=== PATIENT | female | born 1960 | race Caucasian/White ===

== ENCOUNTER 2018-11-12 05:40 | Inpatient (IN) ==
--- NOTE | 2018-10-26 11:45 | Anesthesiology Consultation ---
Date of Service October 26, 2018 Assessment & Plan (1) Encounter for pre-operative examination: Chart Review Chart Review: Acceptable Risk for Surgery and Patient seen in Pre Admission Testing Teaching & Discussion Instructed NPO after midnight before surgery, except medications with 15 cc of water. Medication instructions provided according to the PAT guidelines. History Surgery Operation Date: 11/12/18 12:25 Proposed Procedures p L2-L3 Transforaminal Lumbar Interbody Fusion - Juan M Padron DO Height/Weight Height: 5 ft 7 in Weight: 92.9 kg Allergies Allergy/AdvReac Type Severity Reaction Status Date / Time Sulfa (Sulfonamide Allergy Unknown Rash Verified 10/21/18 13:01 Antibiotics) azithromycin AdvReac Severe SEVERE ABD Verified 10/21/18 13:02 [From Zithromax Z-Ernesto] PAIN Medications Home Medications Medication Instructions Recorded Confirmed Last Taken Sinex 2 spray INHALATION QPM 10/21/18 Unknown aspirin [Aspir-81] 81 mg PO QAM 10/21/18 10/21/18 Unknown ibuprofen 800 mg PO BID PRN 10/21/18 10/21/18 Unknown levocetirizine 5 mg PO QAM 10/21/18 10/21/18 Unknown levothyroxine 125 mcg PO QAM 10/21/18 10/21/18 Unknown losartan 50 mg PO QAM 10/21/18 10/21/18 Unknown oxybutynin chloride 5 mg PO BID 10/21/18 10/21/18 Unknown pantoprazole 40 mg PO QAM 10/21/18 10/21/18 Unknown ropinirole [Requip] 1 mg PO HS 10/21/18 10/21/18 Unknown tramadol 50 mg PO BID PRN 10/21/18 10/21/18 Unknown Past Medical History Medical History Chronic back pain GERD (gastroesophageal reflux disease) History of palpitations Holter 04/2018 WNL, few ectopic beats History of reflex sympathetic dystrophy POLYNEUROPATHY-RIGHT LEG/ARM/LEFT UPPER THIGH QUADRANT-S/P 2007 INJURY Hx of simple renal cyst RIGHT Hypertension Nausea and vomiting after administration of anesthetic agent Osteoarthritis Sleep apnea DOES NOT USE DEVICE Past Family History Family History Father Family history of diabetes mellitus Brother Family history of diabetes mellitus Sister Family hx of colon cancer Past Surgical History Surgical History History of colonoscopy History of esophagogastroduodenoscopy (EGD) History of hysterectomy LAPAROSCOPY Hx of cardiac cath Diagnostic 2014, no stents Hx of foot surgery X 7-RIGHT S/P INDUSTRIAL INJURY Hx of sinus surgery X 2 Past Anesthesia History No Hx of Anesthesia Complications (other than PONV) and No Family Hx of Anesthesia Complications History of PONV Yes Social History Smoking Status: Never smoker Do You Dip or Chew Tobacco: No Hx Alcohol Use: Yes Alcohol type: beer alcohol intake frequency: a few times a month Hx Substance Use: No Exercise / Class Metabolic Activity II 4-5 Yardwork/Stairs/Walk up hill Review of Systems Pt denies any recent chest pain, shortness of breath, palpitations, cough, fever or URI. +chronic sinus drainage Physical Exam Vital Signs BP: 115/82 P: 80 SPO2: 92% RA (pt says it is always low, this is baseline. No acute SOB) T: 97.8 F R: 18 ENMT Mouth: + dentures (upper partial); no dental restorations, no chipped teeth and no loose teeth Thyromental Distance: > or= 3.5 Finger Breadths (3.5) Mallampati Class: II Neck normal visual inspection; neck extension not limited Respiratory normal respiratory effort and + prolonged expiratory phase Auscultation: lungs clear to auscultation bilaterally Cardiovascular Rate/Rhythm: regular rate and regular rhythm Heart Sounds: no murmur Vessels: no carotid bruit Testing Electrocardiogram Date: 04/26/18 Findings: + NSR @ (80) Chest X-Ray Date: 10/26/18 Findings: + NAD Laboratory Results 10/26/18 11:55 10/26/18 11:55 Blood Type B Negative 10/26/18 11:55 Antibody Screen NEGATIVE 10/26/18 11:55 PT 10.1 Seconds (9.0-12.0) 10/26/18 11:55 INR 1.0 (0.9-1.1) 10/26/18 11:55 APTT 25.9 Seconds (21.0-31.0) 10/26/18 11:55 Urine Color Yellow 10/26/18 11:55 Urine Appearance Clear (Clear) 10/26/18 11:55 Urine pH 5.5 (4.5-7.5) 10/26/18 11:55 Ur Specific [place] 1.022 (1.000-1.030) 10/26/18 11:55 Urine Protein Negative (Negative) 10/26/18 11:55 Urine Glucose (UA) Negative (Negative) 10/26/18 11:55 Urine Ketones Negative (Negative) 10/26/18 11:55 Urine Nitrite Negative (Negative) 10/26/18 11:55 Ur Leukocyte Esterase Negative (Negative) 10/26/18 11:55
--- NOTE | 2018-10-26 11:52 | PAT Medication Instructions ---
Medication Instructions Date of Service October 26, 2018 Home Medications Sinex 2 spray INHALATION QPM aspirin [Aspir-81] 81 mg PO QAM ibuprofen 800 mg PO BID PRN levocetirizine 5 mg PO QAM levothyroxine 125 mcg PO QAM losartan 50 mg PO QAM oxybutynin chloride 5 mg PO BID pantoprazole 40 mg PO QAM ropinirole [Requip] 1 mg PO HS tramadol 50 mg PO BID PRN ASK your surgeon for instructions ibuprofen 800 mg PO BID PRN STOP taking 24 hours before surgery ropinirole [Requip] 1 mg PO HS DO NOT take the morning of surgery levocetirizine 5 mg PO QAM losartan 50 mg PO QAM oxybutynin chloride 5 mg PO BID Take morning of surgery With a small sip of water, OTHERWISE NOTHING TO EAT OR DRINK AFTER MIDNIGHT: aspirin [Aspir-81] 81 mg PO QAM levothyroxine 125 mcg PO QAM pantoprazole 40 mg PO QAM tramadol 50 mg PO BID PRN (if needed, may be taken up to four hours before surgery) Take evening before surgery oxybutynin chloride 5 mg PO BID Sinex 2 spray INHALATION QPM tramadol 50 mg PO BID PRN (if needed) Other Notes If you have any questions please call us at [phone] or [phone] or [phone] or [phone]
[2018-10-26 12:41] LABS: Basophils # (auto) 0.02 K/uL (0-0.2); Basophils % (auto) 0.3 %; Eosinophils % (auto) 1.4 %; Hematocrit (blood only) 40.6 % (37-47); Immature Granulocytes # (auto) 0.01 K/uL (0.00-0.02); Immature Granulocytes % (auto) 0.1 %; Lymphocytes # (auto) 2.05 K/uL (1.2-3.4); Lymphocytes % (auto) 28.1 %; Mean Corpuscular Volume 88.5 fL (80-100); Mean Platelet Volume 10.1 fL (7.4-10.4); Monocytes # (auto) 0.36 K/uL (0.11-0.59); Monocytes % (auto) 4.9 %; Neutrophils # (auto) 4.76 K/uL (1.4-6.5); Neutrophils % (auto) 65.2 %; Platelet Count 244 K/uL (130-400); RDW Coefficient of Variation 13.3 % (11.5-14.5); RDW Standard Deviation 43.1 fL (36.4-46.3); Red Blood Count 4.59 M/uL (4.2-5.4)
[2018-10-26 12:42] LABS: Appearance Urine Clear (Clear); Bilirubin Urine Negative (Negative); Color Urine Yellow; Glucose Urine UA Negative (Negative); Ketones Urine Negative (Negative); Leukocyte Esterase Urine Negative (Negative); Nitrite Urine Negative (Negative); Protein Urine Negative (Negative); Specific Gravity Urine 1.022 (1.000-1.030); Urobilinogen Urine Negative (Negative); pH Urine 5.5 (4.5-7.5)
--- NOTE | 2018-10-26 12:50 | XRay Report ---
XR chest Pre-admission PA/Lat CLINICAL HISTORY: Preoperative chest COMPARISON STUDY: No previous studies for comparison. FINDINGS: The cardiac and mediastinal contours are normal. There is no evidence of focal pulmonary co nsolidation. There is no evidence of failure. No pleural effusions are visualized.[ IMPRESSION: No active disease in the chest. Electronically signed by: Geremias Calloway M.D. 10/26/2018 12:49 PM
[2018-10-26 13:11] LABS: Partial Thromboplastin Time 25.9 Seconds (21.0-31.0); Prothrombin Time 10.1 Seconds (9.0-12.0)
[2018-10-26 13:28] LABS: BUN Creatinine Ratio 26.6 (10-20); Calcium 8.9 mg/dl (8.5-10.1); Creatinine Clr Calc Pharmacy 90.9 ml/min; Est GFR (African American) 97.3; Est GFR (Non-African American) 83.9; Potassium 3.8 mmol/L (3.5-5.1)
[2018-11-12] MEDS ORDERED: ACETAMINOPHEN 500 MG TAB PO SCH (06:00)
[2018-11-12] MEDS ORDERED: LR 15ML/HR IV SCH (06:00)
[2018-11-12] MEDS ORDERED: CEFAZOLIN 2000MG 2,000 MG/15 ML SYR IV SCH (06:00)
[2018-11-12] MEDS ORDERED: GABAPENTIN 300 MG x 2 PO SCH (06:00)
[2018-11-12] MEDS ORDERED: fentaNYL citrate 100 MCG/2 ML VIAL ONE ×3 (06:45→08:40)
[2018-11-12] MEDS ORDERED: MIDAZOLAM HCL 1 MG/ML 2ML VIAL ONE (06:45)
[2018-11-12] MEDS ORDERED: HYDROmorphone INJ 2 MG/ML SYR/VIAL ONE ×3 (06:45→09:15)
[2018-11-12] MEDS ORDERED: PROPOFOL IV EMULSION 10 MG/ML 20 ML VIAL IV ONE (06:48)
[2018-11-12] MEDS ORDERED: LIDOCAINE HCL 2% 2 ML VIAL/AMP(20MG/ML) INFIL ONE (06:48)
[2018-11-12] MEDS ORDERED: DEXAMETHASONE SOD INJ 4 MG/ML VIAL ONE (06:48)
[2018-11-12] MEDS ORDERED: ROCURONIUM BROMIDE 10 MG/ML 5 ML VIAL ONE ×4 (06:48→12:32)
[2018-11-12] MEDS ORDERED: LARYING-O-JET KIT (LTA) ONE (06:48)
[2018-11-12] MEDS ORDERED: ONDANSETRON INJ 2 MG/ML 2 ML VIAL ONE ×2 (06:48→09:18)
[2018-11-12] MEDS ORDERED: GLYCOPYRROLATE 0.2 MG/ML VIAL ONE (06:48)
[2018-11-12] MEDS ORDERED: NEOSTIGMINE METHYLSULFATE 1 MG/ML 10ML VIAL ONE (06:48)
[2018-11-12] MEDS ORDERED: BUPIVACAINE/EPINEPHRINE 0.5% MPF 1:200,000 30 ML VIAL ONE (06:56)
[2018-11-12] MEDS ORDERED: BACITRACIN INJ 50,000 UNIT VIAL ONE (06:56)
[2018-11-12] MEDS ORDERED: ePHEDrine sulfate 50 MG/ML AMP IV PRN (07:22)
[2018-11-12] MEDS ORDERED: HYDROmorphone INJ 2 MG/ML SYR/VIAL IV PRN (07:22)
[2018-11-12] MEDS ORDERED: PROMETHAZINE HCL 12.5 MG in SODIUM CHLORIDE 0.9% 50 ML IV PRN ×2 (07:22→10:35)
[2018-11-12] MEDS ORDERED: ONDANSETRON INJ 2 MG/ML 2 ML VIAL IV PRN (07:22)
[2018-11-12] MEDS ORDERED: MEPERIDINE HCL 25 MG/ML CARP IV PRN (07:22)
[2018-11-12] MEDS ORDERED: LABETALOL HCL IV 5 MG/ML 20ML IV PRN (07:22)
[2018-11-12] MEDS ORDERED: PHENYLEPHRINE 100MCG/ML 5ML SYR IV PRN (07:22)
[2018-11-12] MEDS ORDERED: SCOPOLAMINE 1.5 MG TDSY TD ONE (07:22)
[2018-11-12] MEDS ORDERED: ATROPINE SULFATE 0.1 MG/ML 5ML SYR IV PRN (07:22)
--- NOTE | 2018-11-12 07:29 | History & Physical Bridge Note ---
Date of Service November 12, 2018 History & Physical Bridge Note I have examined the patient, reviewed the History & Physical and in the interval since the performance of the History & Physical I have noted the following changes of clinical significance: no changes noted
--- NOTE | 2018-11-12 07:30 | History & Physical Report ---
Date of Service November 12, 2018 Assessment & Plan (1) Neurogenic claudication due to lumbar spinal stenosis: Lumbar decompression and fusion L2-3 Present on Admission?: Yes History of Present Illness Chief Complaint: Back and leg pain Primary Care Provider: NO PCP This is a 58-year-old female presents with chronic persistent back and leg pain. After failing extensive course of nonoperative care is here for surgical intervention. Allergies Allergy/AdvReac Type Severity Reaction Status Date / Time Sulfa (Sulfonamide Allergy Intermediate Rash Verified 11/12/18 05:56 Antibiotics) azithromycin AdvReac Severe SEVERE ABD Verified 10/21/18 13:02 [From Zithromax Z-Ernesto] PAIN Home Medications Home Medications Medication Instructions Recorded Confirmed Type Sinex 2 spray INHALATION QPM 10/21/18 History aspirin [Aspir-81] 81 mg PO QAM 10/21/18 11/12/18 History ibuprofen 800 mg PO BID PRN 10/21/18 11/12/18 History levocetirizine 5 mg PO QAM 10/21/18 11/12/18 History levothyroxine 125 mcg PO QAM 10/21/18 11/12/18 History losartan 50 mg PO QAM 10/21/18 11/12/18 History oxybutynin chloride 5 mg PO BID 10/21/18 11/12/18 History pantoprazole 40 mg PO QAM 10/21/18 11/12/18 History ropinirole [Requip] 1 mg PO HS 10/21/18 11/12/18 History tramadol 50 mg PO BID PRN 10/21/18 10/21/18 History Past Med/Surg History Medical History Hypothyroidism (Acute) Chronic back pain GERD (gastroesophageal reflux disease) History of palpitations Holter 04/2018 WNL, few ectopic beats History of reflex sympathetic dystrophy POLYNEUROPATHY-RIGHT LEG/ARM/LEFT UPPER THIGH QUADRANT-S/P 2008 INJURY Hx of simple renal cyst RIGHT Hypertension Osteoarthritis Sleep apnea DOES NOT USE DEVICE Surgical History History of colonoscopy History of esophagogastroduodenoscopy (EGD) History of hysterectomy LAPAROSCOPY Hx of cardiac cath Diagnostic 2014, no stents Hx of foot surgery X 7-RIGHT S/P INDUSTRIAL INJURY Hx of sinus surgery X 2 Nausea and vomiting after administration of anesthetic agent Family History Father Family history of diabetes mellitus Brother Family history of diabetes mellitus Sister Family hx of colon cancer Social History Current Living Situation: Alone Other Information That Helps Us Care for You: No Feels Safe at Home: Yes Safety Concerns: Feels Safe At This Time Smoking Status: Never smoker Do You Dip or Chew Tobacco: No Hx Alcohol Use: Yes Alcohol type: beer Alcohol Intake Frequency: a few times a month Hx Substance Use: No Beliefs That Will Affect Care: None Preferred Language: Togolese Communication Ability: Effective Dock Manager Required: No Physical Exam 2 Vital Signs (Past 24 Hours): Last Vital Signs Temp 36.5 C 11/12/18 06:06 Pulse 73 11/12/18 06:06 Resp 20 11/12/18 06:06 BP 161/87 H 11/12/18 06:06 Pulse Ox 95 11/12/18 06:06 Results & Data Medications Administered Acetaminophen (Tylenol) 1,000 mg PO PREOP STACY Stop: 11/12/19 23:00 Last Admin: 11/12/18 06:33 Dose: 1,000 mg Gabapentin (Neurontin) 600 mg PO PREOP STACY Stop: 11/12/18 16:00 Last Admin: 11/12/18 06:34 Dose: 600 mg Lactated Ringer's (Lr) 1,000 mls @ 15 mls/hr IV .Q24H STACY Stop: 11/12/18 23:59 Last Admin: 11/12/18 06:24 Dose: 15 mls/hr
[2018-11-12] MEDS ORDERED: SCOPOLAMINE 1.5 MG TDSY ONE (07:39)
[2018-11-12] MEDS ORDERED: CHECK SCOPOLAMINE PATCH PLACEMENT SCH (08:00)
[2018-11-12] MEDS ORDERED: FLOSEAL HEMOSTATIC MATRIX 10ML TOP ONE (08:12)
--- NOTE | 2018-11-12 09:10 | Operative Report ---
Post Operative Report Date of Surgery November 12, 2018 Pre & Post Diagnosis Operation Date: 11/12/18 07:45 Pre-Op Diagnosis: Lumbar spinal stenosis with radiculopathy Post-Op Diagnosis: Same Procedure Operation Date: 11/12/18 07:45 Actual Procedures #1 lumbar decompression medial vasectomy foraminotomy L2-3. #2 posterior spinal fusion L2-3. #3 placement posterior instrumentation L2-3. #4 interbody fusion L2-3. #5 placement of titanium 9 x 22 mm cage at L2-3. #6 placement of local autograft in the posterior gutters. #7 placement infuse collagen sponge, master graft and posterior gutters and ostial amp and interbody space. Surgeon Juan M Padron, Pole Peeling Machine Operator Helper Clarence Romo Estimated Blood Loss 150 Findings Consistent with Post-Op Diagnosis Specimens None Description of Procedure Patient was met with preoperatively case discussed all questions addressed. After informed consent obtained patient was taken to the operative suite underwent intubation and placed in a prone position on the Renato table on top of the Sotero frame. All bony prominences well-padded eyes inspected to ensure no external pressure placed upon the. This point the lumbar spine was prepped and draped in normal sterile fashion. Sharp dissection with the assistance of Bovie cautery was performed down to and exposing the lamina and transverse processes of the. From a caudal to cephalad fashion complete laminectomy of L2 was performed including medial facetectomy foraminotomy and left addressing severe foraminal stenosis. Pedicle screws were then placed in L2 and L3 bilaterally with assistance of fluoroscopy the process rosey placed. The transforaminal approach and left complete discectomy was performed in. Carotid to subcortical bleeding bone and a 9 x 22 mm titanium cage filled ostium bone graft tapped in position. Rods were then compressed locked in final position bilaterally. The transverse processes of L2 and L3 burred to subcortical bleeding bone. Infuse collagen sponge mass graft local autograft placed in the posterior gutters. 15 round HERNANDEZ drain inserted. Incision was then closed with 1 Vicryl the fascia 2-0 Vicryl subcutaneous and 4 Monocryl for Fransen closure Steri-Strip sterile dressings placed. Patient will continue to PACU in stable condition. Please note Clarence Romo present throughout the entire procedure involved in patient positioning complex portions of the surgery and fashion closure. I attest to the content of the Intraoperative Record and any orders documented therein. Any exceptions are noted below.
[2018-11-12] MEDS ORDERED: PHENYLEPHRINE 100MCG/ML 5ML SYR ONE (09:18)
[2018-11-12] MEDS ORDERED: ePHEDrine sulfate 50 MG/ML SYR ONE (09:18)
[2018-11-12] MEDS ORDERED: METOCLOPRAMIDE HCL INJ 5 MG/ML 2 ML VIAL ONE (09:18)
[2018-11-12] MEDS ORDERED: raNITIdine HCl 25 MG/ML VIAL ONE (09:18)
[2018-11-12] MEDS ORDERED: KETOROLAC 30 MG/ML VIAL ONE (09:18)
--- NOTE | 2018-11-12 09:20 | Fluoroscopy Report ---
FL lumbar spine 2-3V CLINICAL HISTORY: L2-L3 LUMBAR INTERBODY FUSION COMPARISON STUDY: None FLUOROSCOPY TIME: 18 seconds. NUMBER OF FLUOROSCOPIC IMAGES: 2 FINDINGS: 2 intraoperative fluoroscopic spot images reveal postsurgical changes of an L2-3 interbody fusion and posterior pedicle screw fixation. IMPRESSION: Intraoperative radiographs demonstrating an L2-3 interbody fusion and posterior pedicle screw fixation Electronically signed by: Geremias Calloway M.D. 11/12/2018 9:19 AM
[2018-11-12] MEDS ORDERED: ESMOLOL HCL INJ 10 MG/ML 10ML VIAL IV ONE (09:31)
[2018-11-12] MEDS: fentaNYL citrate 100 MCG/2 ML VIAL IV PRN ×2 (09:45→09:52)
--- NOTE | 2018-11-12 10:03 | Anesthesiology Progress Note ---
Date of Service November 12, 2018 Anesthesia Post Procedure Vital Signs Vital Signs: Temp Pulse Pulse Resp BP Pulse Ox 11/12/18 09:28 36.4 C L 94 H 16 161/89 H 96 11/12/18 06:06 36.5 C 73 20 161/87 H 95 Pain Intensity Lower Back: Pain Intensity: 0 Bilateral Hip: Pain Intensity: 4 Notes Mental Status: alert / awake / arousable Patient Amnestic to Procedure: Yes Nausea / Vomiting: adequately controlled Pain: adequately controlled Airway Patency, RR, SpO2: stable & adequate BP & HR: stable & adequate Hydration State: stable & adequate Anesthetic Complications: no major complications apparent and Pt Satisfied with anesthetic care
[2018-11-12] MEDS ORDERED: TRAMADOL HCL 50 MG TABLET PO PRN (10:35)
[2018-11-12] MEDS ORDERED: METOCLOPRAMIDE HCL INJ 5 MG/ML 2 ML VIAL IV PRN (10:35)
[2018-11-12] MEDS ORDERED: LORazepam 0.5 MG TAB PO PRN (10:35)
[2018-11-12] MEDS ORDERED: BISACODYL 10 MG SUPP PR PRN (10:35)
[2018-11-12] MEDS ORDERED: FAMOTIDINE 20 MG TAB PO PRN (10:35)
[2018-11-12] MEDS ORDERED: DO NOT ADMINISTER PNEUMOCOCCAL VACCINE PRN (10:35)
[2018-11-12] MEDS ORDERED: SOD PHOSPHATE/SOD BIPHOSPHATE ENEMA 132 ML BTL PR PRN (10:35)
[2018-11-12] MEDS ORDERED: LORazepam 0.5 MG/1 ML VIAL IV PRN (10:35)
[2018-11-12] MEDS ORDERED: ONDANSETRON 4 MG TAB PO PRN (10:35)
[2018-11-12] MEDS ORDERED: ALUMINUM/MAGNESIUM SUSP 30 ML UDC PO PRN (10:35)
[2018-11-12] MEDS ORDERED: ACETAMINOPHEN 1,000 MG/100 ML VIAL IV PRN (10:35)
[2018-11-12] MEDS ORDERED: MAGNESIUM HYDROXIDE SUSP 30 ML UDC PO PRN (10:35)
[2018-11-12] MEDS ORDERED: HYDROmorphone INJ 0.5 MG/0.5 ML SYR IV PRN (10:35)
[2018-11-12] MEDS ORDERED: DO NOT ADMINISTER FLU VACCINE PRN (10:35)
[2018-11-12] MEDS: SODIUM CHLORIDE 0.9% 1000ML 1,000 ML IV SCH ×2 (11:28→18:43)
[2018-11-12] MEDS: KETOROLAC TROMETHAMINE 15 MG/ML VIAL IV SCH ×2 (14:22→19:41)
[2018-11-12] MEDS: CEFAZOLIN 2000MG 2,000 MG/15 ML SYR IV SCH ×2 (16:05→23:05)
[2018-11-12] MEDS: ROPINIROLE HCL 1 MG TABLET PO SCH (20:42)
[2018-11-12] MEDS: OXYBUTYNIN CHLORIDE 5 MG TAB PO SCH (20:42)
[2018-11-12] MEDS: DOCUSATE SODIUM/SENNA 50/8.6MG TAB PO SCH (20:42)
[2018-11-13] MEDS: KETOROLAC TROMETHAMINE 15 MG/ML VIAL IV SCH ×2 (01:25→07:33)
[2018-11-13] MEDS: SODIUM CHLORIDE 0.9% 1000ML 1,000 ML IV SCH (01:30)
[2018-11-13 05:32] LABS: Basophils # (auto) 0.01 K/uL (0-0.2); Basophils % (auto) 0.1 %; Eosinophils # (auto) 0.01 K/uL (0-0.5); Eosinophils % (auto) 0.1 %; Hematocrit (blood only) 34.3 % (37-47); Hemoglobin 11.1 g/dL (12.0-16.0); Immature Granulocytes # (auto) 0.02 K/uL (0.00-0.02); Immature Granulocytes % (auto) 0.2 %; Lymphocytes # (auto) 1.86 K/uL (1.2-3.4); Lymphocytes % (auto) 15.9 %; Mean Corpuscular Hgb Conc 32.4 g/dL (32-36); Mean Corpuscular Volume 87.9 fL (80-100); Mean Platelet Volume 9.8 fL (7.4-10.4); Monocytes # (auto) 0.84 K/uL (0.11-0.59); Monocytes % (auto) 7.2 %; Neutrophils # (auto) 8.98 K/uL (1.4-6.5); Neutrophils % (auto) 76.5 %; Platelet Count 230 K/uL (130-400); RDW Coefficient of Variation 13.7 % (11.5-14.5); RDW Standard Deviation 43.6 fL (36.4-46.3); White Blood Count 11.72 K/uL (4.8-10.8)
[2018-11-13] MEDS: POLYETHYLENE (MIRALAX) 17 GM PACK PO SCH ×4 (05:33→23:31)
[2018-11-13] MEDS: LEVOTHYROXINE SODIUM 125 MCG TABLET PO SCH (05:33)
[2018-11-13 05:51] LABS: BUN Creatinine Ratio 26.6 (10-20); Calcium 8.3 mg/dl (8.5-10.1); Creatinine Clr Calc Pharmacy 101.5 ml/min; Est GFR (African American) 109.7; Est GFR (Non-African American) 94.6; Potassium 3.6 mmol/L (3.5-5.1)
[2018-11-13] MEDS: ONDANSETRON INJ 2 MG/ML 2 ML VIAL IV PRN (07:27)
[2018-11-13] MEDS: OXYBUTYNIN CHLORIDE 5 MG TAB PO SCH ×2 (08:22→20:46)
[2018-11-13] MEDS: PANTOprazole 40 MG TAB PO SCH (08:22)
[2018-11-13] MEDS: ASPIRIN 81 MG ECTAB PO SCH (08:23)
[2018-11-13] MEDS: LOSARTAN POTASSIUM 50 MG TAB PO SCH (08:23)
--- NOTE | 2018-11-13 10:19 | Orthopedic Progress Note ---
Date of Service November 13, 2018 Assessment & Plan (1) Neurogenic claudication due to lumbar spinal stenosis: Patient will continue physical therapy today advance her bowel regimen. Anticipate possible discharge home tomorrow. Present on Admission?: Yes Subjective Pain is controlled leg pain improved Physical Exam 2 Vital Signs (Past 24 Hours): Last Vital Signs Temp 37.0 C 11/13/18 07:08 Pulse 78 11/13/18 07:08 Resp 18 11/13/18 07:08 BP 154/82 H 11/13/18 07:08 Pulse Ox 94 11/13/18 07:08 Physical Exam: Neurologically she is intact appears comfortable.
[2018-11-13] MEDS: OXYCODONE HCL IR 5 MG TAB (IMMEDIATE RELEASE) PO PRN ×2 (10:47→14:48)
[2018-11-13] MEDS: TRAMADOL HCL 50 MG TABLET PO PRN (16:23)
[2018-11-13] MEDS: DOCUSATE SODIUM/SENNA 50/8.6MG TAB PO SCH (20:46)
[2018-11-13] MEDS: ROPINIROLE HCL 1 MG TABLET PO SCH (20:46)
[2018-11-14] MEDS: ONDANSETRON INJ 2 MG/ML 2 ML VIAL IV PRN (01:49)
[2018-11-14] MEDS: OXYCODONE HCL IR 5 MG TAB (IMMEDIATE RELEASE) PO PRN (01:49)
[2018-11-14] MEDS: LEVOTHYROXINE SODIUM 125 MCG TABLET PO SCH (06:21)
[2018-11-14] MEDS: POLYETHYLENE (MIRALAX) 17 GM PACK PO SCH ×2 (06:21→12:29)
[2018-11-14] MEDS: TRAMADOL HCL 50 MG TABLET PO PRN ×2 (06:25→12:33)
[2018-11-14] MEDS: PANTOprazole 40 MG TAB PO SCH (07:57)
[2018-11-14] MEDS: OXYBUTYNIN CHLORIDE 5 MG TAB PO SCH (07:57)
[2018-11-14] MEDS: ASPIRIN 81 MG ECTAB PO SCH (07:58)
[2018-11-14] MEDS: LOSARTAN POTASSIUM 50 MG TAB PO SCH (08:00)
--- NOTE | 2018-11-14 10:44 | Discharge Summary ---
Date of Service November 14, 2018 Admission HPI Per Admitting Provider This is a 58-year-old female presents with chronic persistent back and leg pain. After failing extensive course of nonoperative care is here for surgical intervention. Principal Diagnosis Lumbar spinal stenosis with radiculopathy Discharge Data Allergies Allergy/AdvReac Type Severity Reaction Status Date / Time Sulfa (Sulfonamide Allergy Intermediate Rash Verified 11/12/18 05:56 Antibiotics) azithromycin AdvReac Severe SEVERE ABD Verified 10/21/18 13:02 [From Zithromax Z-Ernesto] PAIN Consultations 11/12/18 10:35 Consult Case Management - Discharge Planning Routine Procedures Performed Operation Date: 11/12/18 07:45 Actual Procedures p L2-L3 Decompression, Fusion, Interbody Fusion, Use of Infuse and Osteoamp(Not Applicable) - Juan M Padron DO Ordered Studies 11/12/18 07:45 FL fluoroscopy >1hr Routine FL lumbar spine 2-3V Routine Hospital Course (1) Neurogenic claudication due to lumbar spinal stenosis: Patient underwent lumbar decompression fusion tolerated this well was taken to the orthopedic floor postoperative. Postop day and when she was up and ambulating nicely. Leg pain resolved. Back pain controlled. She progressed through postop day #2. HERNANDEZ drain decreasing probably. Subsequent to discharge home. Discharge orders and instructions found in the chart for further review. Total Time Total Time Spent Total Time Spent (In Minutes): Not applicable Discharge Plan Discharge Items Patient Disposition: Home - Self-Care Reason For Visit: Spinal Stenosis Discharge Diagnosis: Lumbar spinal stenosis with radiculopathy Discharge Goals: Improve function Activity: Per 'Additional Instructions' section Non-emergency contact: Primary Care Provider Call non-emergency contact if: you have any medication questions Follow-up/Referrals: PCP,NO [Primary Care Provider] - Diet: Regular Addtl Provider Instructions: ACTIVITY RECOMMENDATIONS: SELF CARE INSTRUCTIONS AFTER THORACIC/LUMBAR FUSIONS 1. You may walk to your tolerance. It is good exercise for your legs and back. Expect some back and intermittent leg aches and pains. 2. You may perform "counter-top" level activities (make a sandwich, sanjiv with a project, etc.). 3. No bending or lifting of more than 10 pounds or back twisting of any nature (roll like a log when turning in bed). 4. You may ride in a car for 20-30 minutes at a time. No driving until after your first visit with your doctor. 5. Frequent changes of position and restricting sitting to 30 minutes at a time will help limit the amount of back spasms and stiffness you may experience. 6. You may discontinue the use of ambulatory aids (cane, crutches, etc.) once your strength and confidence allow. 7. You may in school suspension coordinator the shower and let water strike your incision when you arrive home at least once daily. Do not take a tub bath, sit in a hot tub or go into a swimming pool until after your first recheck in the office. SPECIAL CARE INSTRUCTIONS: VERY IMPORTANT TO READ AND REVIEW A. Your surgical incision has been closed with a cosmetic suture under the skin that will dissolve in about 6 weeks. In 14 days, you can use a pair of clean scissors and cut the suture that is left outside of the skin at the ends of your incision. 1. The small skin tapes can be removed 7 days after surgery if they have not fallen off by that point. 2. You may keep the wound open to air as much as possible to promote healing after post-op day number 5 unless told otherwise by your doctor. 3. If you think the wound looks like it is becoming infected (redness or worsening drainage) and/or you are experiencing fever, chill or worsening back pain and muscle spasms, contact the office so that we may evaluate you as soon as possible. B. Complications are uncommon, but please contact us if you have any signs or symptoms of: 1. wound infection (fever higher than 102.5 degrees F, redness, separation of wound, drainage, or increasing pain from the incision) 2. blood clots in legs (pain, swelling, redness and warmth in legs) 3. urinary tract infection (fever higher than 102.5 degrees F, burning upon urination or increased frequency of urination) 4. nerve problems (inability to walk on your toes or heels, numbness, loss of bowel or bladder control) 5. any other symptoms that concern you C. Please call the office at if you have any concerns or questions about your operation or recovery. D. No smoking! Smoking drastically decreases the chance of a solid fusion. E. Do not take any anti-inflammatory medications (Indocin, Advil, Motrin, Aspirin, Naprosyn, etc.) as these may inhibit the chance of a solid fusion. Tylenol is okay to take for pain. MANAGING PAIN AFTER SPINAL SURGERY 1. Narcotic medication is intended for short-term use and will be provided for surgical pain. Surgical pain usually lasts for a period of 4-6 weeks. Narcotic medication includes Percocet, Vicodin, Darvocet, Tylenol #3 or Lortab. 2. Longer-term pain is more appropriately treated with non-narcotic medication such as Tylenol ES. 3. Muscle spasm is not appropriately treated with narcotics. Muscle relaxers such as Soma, Flexeril or Skelaxin can be used along with Tylenol ES. 4. Remember that we all live with some "aches and pains". This is not unusual or uncommon after an injury or as we get older. a. Back pain is expected and may include muscle spasms for 4 to 6 weeks after surgery. The pain should gradually improve. If the pain worsens for no apparent reason, please contact the office. b. Intermittent leg pain may also be experienced and should not be concerned about unless it worsens for no apparent reason. If so, please contact the office. 5. We will provide appropriate medication within the normal guidelines of their prescribed use. We will also be very cautious and aware of potential abuse and extended duration of patients' medication needs. a. Pain medications are for your comfort and to assist with sleep and rest so that the tissue can heal. They are not provided in order to return to normal activity and should not be used through the day. To do so or worsening pain at night can result from ongoing tissue damage and development of tolerance to the prescribed medicine. 6. Please allow 2-3 days to process refills. Prescriptions will not be mailed but must be picked up at the office. FOLLOW UP VISIT: Keep your scheduled follow-up appointment. Any questions, please call the office at . Prescriptions: New tramadol 50 mg Tablet 50 mg PO Q4H PRN (Reason: Pain, Moderate) Qty: 30 RF: 0 oxycodone 5 mg Tablet 5 mg PO Q4H PRN (Reason: Pain, Severe) Qty: 30 RF: 0 ondansetron HCl [Zofran] 4 mg tablet 4 mg PO Q8H PRN (Reason: nausea and vomiting) Qty: 20 RF: 0 Continue losartan 50 mg Tablet 50 mg PO QAM RF: 0 ropinirole [Requip] 1 mg Tablet 1 mg PO HS RF: 0 aspirin [Aspir-81] 81 mg Tablet,Delayed Release (Dr/Ec) 81 mg PO QAM RF: 0 tramadol 50 mg Tablet 50 mg PO BID PRN (Reason: Pain) RF: 0 pantoprazole 40 mg Tablet,Delayed Release (Dr/Ec) 40 mg PO QAM RF: 0 oxybutynin chloride 5 mg Tablet 5 mg PO BID RF: 0 levocetirizine 5 mg Tablet 5 mg PO QAM RF: 0 levothyroxine 125 mcg Capsule 125 mcg PO QAM RF: 0 Sinex 2 spray Inhalation QPM RF: 0 Discontinued ibuprofen 800 mg Tablet 800 mg PO BID PRN (Reason: Pain) RF: 0 Visit Report Forms: My [facility] Stand-Alone Forms: [facility] Discharge Orders: Discharge Order (Routine); Ordered 11/14/18 Ordered By: Juan M Padron Admission Data Admit Date/Time: 11/12/18 09:15 Attending Provider: Juan M Padron Admit Provider: Juan M Padron Primary Care Provider: PCP,NO Service: Surgical Services
== END 2018-11-14 13:12 | disposition home or self-care (01) | DRG 455 ==
LOC: ASU 05:40 → 3E 09:15

== ENCOUNTER 2024-02-05 10:40 | Inpatient (IN) ==
--- NOTE | 2023-12-31 12:30 | PAT Medication Instructions ---
Medication Instructions Date of Service December 31, 2023 Home Medications aspirin 81 mg tablet,delayed release (Aspir-) 81 mg PO QAM levocetirizine 5 mg tablet 5 mg PO QAM levothyroxine 125 mcg capsule 125 mcg PO QAM losartan 50 mg tablet 50 mg PO QAM pantoprazole 40 mg tablet,delayed release 40 mg PO BID azelastine 137 mcg (0.1 %) nasal spray aerosol 2 spray intranasal DAILY Ligaplex 2 1 cap PO BID amitriptyline 10 mg tablet 10 mg PO HS apixaban 5 mg tablet (Eliquis) 5 mg PO BID docusate sodium 1 cap PO QAM PRN flecainide 50 mg tablet 50 mg PO Q12H metoprolol succinate 25 mg tablet,extended release 24 hr 25 mg PO BID ondansetron 8 mg disintegrating tablet 8 mg PO Q8H PRN tramadol 50 mg tablet 50 mg PO TID PRN turmeric root extract 500 mg tablet 500 mg PO BID Continue as directed azelastine 137 mcg (0.1 %) nasal spray aerosol 2 spray intranasal DAILY ASK your prescriber and surgeon aspirin 81 mg tablet,delayed release (Aspir-) 81 mg PO QAM apixaban 5 mg tablet (Eliquis) 5 mg PO BID STOP taking 2 weeks before surgery (or as soon as possible if surgery is within 2 weeks) Ligaplex 2 1 cap PO BID turmeric root extract 500 mg tablet 500 mg PO BID DO NOT take the morning of surgery levocetirizine 5 mg tablet 5 mg PO QAM losartan 50 mg tablet 50 mg PO QAM docusate sodium 1 cap PO QAM PRN Take morning of surgery With a small sip of water, OTHERWISE NOTHING TO EAT OR DRINK AFTER MIDNIGHT: levothyroxine 125 mcg capsule 125 mcg PO QAM pantoprazole 40 mg tablet,delayed release 40 mg PO BID flecainide 50 mg tablet 50 mg PO Q12H metoprolol succinate 25 mg tablet,extended release 24 hr 25 mg PO BID ondansetron 8 mg disintegrating tablet 8 mg PO Q8H PRN(if needed) tramadol 50 mg tablet 50 mg PO TID PRN(if needed) Take evening before surgery pantoprazole 40 mg tablet,delayed release 40 mg PO BID amitriptyline 10 mg tablet 10 mg PO HS flecainide 50 mg tablet 50 mg PO Q12H metoprolol succinate 25 mg tablet,extended release 24 hr 25 mg PO BID ondansetron 8 mg disintegrating tablet 8 mg PO Q8H PRN(if needed) tramadol 50 mg tablet 50 mg PO TID PRN(if needed) Other Notes If you have any questions please call us at [phone] or [phone] or [phone] or [phone]
--- NOTE | 2024-01-06 09:30 | Anesthesiology Consultation ---
Date of Service January 06, 2024 Assessment & Plan (1) Encounter for pre-operative examination: - Check BSG AM DOS (hx glucose fluctuations/reactive hypoglycemia) - Infectious disease screening: Per assessment on 01/06/24: No known infectious d isease contacts or current infectious disease symptoms. No noted recent Covid positive test result. - Cardiology note (12/24/23): "Low to moderate risk.. OK to stop Eliquis if needed preop" - Hx PONV: Patient states "unable to vomit due to Mai fundoplication surgery" done in 2019 - Patient acceptable risk for surgery pending surgeon-ordered PCP preop evaluation (Jackelyn Morales [facility], appt 01/17). Chart Review Chart Review: Patient seen in Pre Admission Testing Teaching & Discussion Pre-Anesthesia Teaching/Discussion Notes: Instructed NPO after midnight before surgery,except medications with 15 cc of water. Medication instructions provided according to the PAT guidelines. History Surgery Operation Date: 02/05/24 07:45 Proposed Procedures p L1-L2 Decompression and Fusion, Hardware Removal L2-L3 Spinal Cord Monitoring - Juan M Padron, Height/Weight Height: 5 ft 7 in Weight: 71.4 kg Allergies Allergy/AdvReac Type Severity Reaction Status Date / Time Sulfa (Sulfonamide Allergy Intermediate Rash Verified 12/30/23 10:14 Antibiotics) azithromycin AdvReac Severe Severe Verified 01/06/24 08:46 [From Zithromax Z-Ernesto] abdominal pain Medications Home Medications Medication Instructions Recorded Confirmed Last Taken aspirin 81 mg tablet,delayed 81 mg PO QAM 10/21/18 12/30/23 11/12/18 04:00 release (Aspir-) levocetirizine 5 mg tablet 5 mg PO QAM 10/21/18 12/30/23 11/11/18 14:00 levothyroxine 125 mcg capsule 125 mcg PO QAM 10/21/18 12/30/23 11/12/18 04:00 losartan 50 mg tablet 50 mg PO QAM 10/21/18 12/30/23 11/11/18 14:00 pantoprazole 40 mg tablet,delayed 40 mg PO BID 10/21/18 12/30/23 11/12/18 04:00 release azelastine 137 mcg (0.1 %) nasal 2 spray intranasal DAILY 01/09/21 12/30/23 Unknown spray aerosol Ligaplex 2 1 cap PO BID 12/30/23 12/30/23 Unknown amitriptyline 10 mg tablet 10 mg PO HS 12/30/23 12/30/23 Unknown apixaban 5 mg tablet (Eliquis) 5 mg PO BID 12/30/23 12/30/23 Unknown docusate sodium 1 cap PO QAM PRN prn 12/30/23 12/30/23 Unknown flecainide 50 mg tablet 50 mg PO Q12H 12/30/23 12/30/23 Unknown metoprolol succinate 25 mg 25 mg PO BID 12/30/23 12/30/23 Unknown tablet,extended release 24 hr ondansetron 8 mg disintegrating 8 mg PO Q8H PRN Nausea 12/30/23 12/30/23 Unknown tablet tramadol 50 mg tablet 50 mg PO TID PRN prn 12/30/23 12/30/23 Unknown turmeric root extract 500 mg tablet 500 mg PO BID 12/30/23 12/30/23 Unknown Past Medical History Medical History Chronic back pain GERD (gastroesophageal reflux disease) History of atrial fibrillation Taking Eliquis Follows with Dr Rodriguez/Dwaine History of COVID-2021, 10/2023- mild symptoms History of kidney stones passed on own History of palpitations Holter 04/2018 WNL, few ectopic beats History of reflex sympathetic dystrophy Polyneuropathy RLE/RUE, Left upper thigh s/p 2007 injury Hx of deep venous thrombosis RLE (2022)- patient was taking Eliquis but "ran out" at the time Hx of simple renal cyst Right Hypertension Hypothyroidism Osteoarthritis Reactive hypoglycemia Renal cyst right Scoliosis Sleep apnea Does not use device Urgency of urination Exercise / Class Metabolic Activity III < 4 Walking/Shop/Light housework Past Family History Family History Father Family history of diabetes mellitus Brother Family history of diabetes mellitus Sister Family hx of colon cancer Past Surgical History Surgical History History of cholecystectomy History of colonoscopy History of esophagogastroduodenoscopy (EGD) History of hysterectomy Laparoscopy History of lumbar spinal fusion L2-L3 decompression/fusion (11/12/18): Grade 1 view, MAC#3, ETT 7.0 at [facility] History of Mai fundoplication Hx of cardiac cath Diagnostic 2014- no stents Hx of foot surgery Right s/p industrial injury x7 Hx of sinus surgery x2 Nausea and vomiting after administration of anesthetic agent Patient states "unable to vomit due to mai fundoplication surgery" Past Anesthesia History No Hx of Anesthesia Complications and No Family Hx of Anesthesia Complications History of PONV No Hx of Motion Sickness and History of PONV (Patient states "unable to vomit due to Mai fundoplication surgery") Social History Smoking Status: Never smoker Do You Dip or Chew Tobacco: No Hx Alcohol Use: Yes Alcohol type: beer alcohol intake frequency: holidays/special occasions only Hx Substance Use: No substance use type: does not use Review of Systems Rare palpitations/heart racing- no recent issues. Patient denies chest pain, shortness of breath, dyspnea on exertion, fever, chills, cough, wheezing. Physical Exam Vital Signs BP 149/83 P 71 TEMP 98.2 SP02 96%RA RESP 18 Physical Full cervical extension range of motion. Full TMJ range of motion. TMD 3 finger breaths Mallampati Score 2 Dentition: full upper denture Lungs: clear throughout to auscultation Cardiac: regular rate and rhythm, no murmurs noted Spine: normal Carotid arteries: negative bruit Extremities: no LE edema Lab Results Anesthesia Preop Results Results Anesthesia Widget: WBC 5.91 K/ul (4.8-10.8) 01/06/24 Hgb 12.0 g/dl (12.0-16.0) 01/06/24 Hct 38.1 % (37.0-47.0) 01/06/24 Plt 229 K/uL (130-400) 01/06/24 Na 140 mmol/L (136-145) 01/06/24 K 4.0 mmol/L (3.5-5.1) 01/06/24 Cl 106 mmol/L (98-107) 01/06/24 CO2 31 mmol/L (21-32) 01/06/24 BUN 22 mg/dl (6-23) 01/06/24 Creat 0.86 mg/dl (0.6-1.2) 01/06/24 Glucose Level 102 mg/dl (70-99(Fasting)) H 01/06/24 PT 10.9 Seconds (9.0-12.0) 01/06/24 PTT 33 Seconds (21-31) H 01/06/24 INR 1.0 (0.9-1.1) 01/06/24 Urine Color Yellow 01/06/24 Urine Appearance Clear (Clear) 01/06/24 Urine pH 7.0 (4.5-7.5) 01/06/24 Urine Specific Ralph 1.010 (1.000-1.030) 01/06/24 Urine Protein Negative (Negative) 01/06/24 Urine Glucose (UA) Negative (Negative) 01/06/24 Urine Ketones Negative (Negative) 01/06/24 Urine Blood Negative (Negative) 01/06/24 Urine Nitrite Negative (Negative) 01/06/24 Urine Bilirubin Negative (Negative) 01/06/24 Urine Urobilinogen Negative (Negative) 01/06/24 Urine Leukocyte Esterase Negative (Negative) 01/06/24 Blood Type B Negative 01/06/24 Antibody Screen NEGATIVE 01/06/24 Testing Electrocardiogram Date: 10/06/23 "sinus rhythm, NS-T changes" per 10/06/23 cardiology office visit note Chest X-Ray Date: 01/06/24 Findings: + NAD Echocardiogram Date: 08/25/22 EF 50%. Grade 1 diastolic dysfunction. Mild MR. Thickened mitral valve. Physiologic IN. Stress Test Date: 08/25/22 Stress EKG was negative for myocardial ischemia 94% MPHR. High level of exercise achieved. 10.1 METS. Shortness of breath reproduced with exercise. Normal nuclear portion of exercise nuclear stress test. No evidence of ischemia or infarction. Normal LVEF and wall motion. "Low risk scan."
[2024-02-05] MEDS ORDERED: HYDROmorphone INJ 1 MG/ML SYRINGE IV PRN ×2 (10:58→15:48)
[2024-02-05] MEDS ORDERED: ePHEDrine sulfate 50 MG/ML AMP IV PRN (10:58)
[2024-02-05] MEDS ORDERED: ATROPINE SULFATE 0.1 MG/ML 10ML SYR IV PRN (10:58)
[2024-02-05] MEDS: ACETAMINOPHEN 500 MG TAB PO SCH (11:06)
[2024-02-05] MEDS: LR 15ML/HR IV SCH (11:06)
[2024-02-05] MEDS: LR 60ML/HR IV SCH (11:07)
[2024-02-05] MEDS: GABAPENTIN 300 MG CAP PO SCH (11:07)
[2024-02-05] MEDS ORDERED: MIDAZOLAM HCL 1 MG/ML 2ML VIAL ONE (11:52)
[2024-02-05] MEDS ORDERED: fentaNYL citrate PF 100 MCG/2 ML VIAL ONE (11:52)
--- NOTE | 2024-02-05 12:45 | History & Physical Report ---
Date of Service February 05, 2024 Assessment & Plan (1) Neurogenic claudication due to lumbar spinal stenosis: Plan: L1-L2 decompression fusion, hardware removal L2-L3 History of Present Illness Chief Complaint: Back and leg pain Primary Care Provider: Jackelyn Morales PA-C This is a 63-year-old female who presents with chronic persistent back and leg pain Course of nonoperative care is here for surgical invention. Allergies Allergy/AdvReac Type Severity Reaction Status Date / Time Sulfa (Sulfonamide Allergy Intermediate Rash Verified 02/05/24 10:58 Antibiotics) azithromycin AdvReac Severe Severe Verified 02/05/24 10:58 [From Zithromax Z-Ernesto] abdominal pain Home Medications Medication Instructions Recorded Confirmed Type aspirin 81 mg tablet,delayed 81 mg PO QAM 10/21/18 02/05/24 History release (Aspir-) levocetirizine 5 mg tablet 5 mg PO QAM 10/21/18 02/05/24 History levothyroxine 125 mcg capsule 125 mcg PO QAM 10/21/18 02/05/24 History losartan 50 mg tablet 50 mg PO QAM 10/21/18 02/05/24 History pantoprazole 40 mg tablet,delayed 40 mg PO BID 10/21/18 02/05/24 History release azelastine 137 mcg (0.1 %) nasal 2 spray intranasal DAILY 01/09/21 02/05/24 History spray aerosol Ligaplex 2 1 cap PO BID 12/30/23 02/05/24 History amitriptyline 10 mg tablet 10 mg PO HS 12/30/23 02/05/24 History apixaban 5 mg tablet (Eliquis) 5 mg PO BID 12/30/23 02/05/24 History docusate sodium 1 cap PO QAM PRN prn 12/30/23 02/05/24 History flecainide 50 mg tablet 50 mg PO Q12H 12/30/23 02/05/24 History metoprolol succinate 25 mg 25 mg PO BID 12/30/23 02/05/24 History tablet,extended release 24 hr ondansetron 8 mg disintegrating 8 mg PO Q8H PRN Nausea 12/30/23 02/05/24 History tablet tramadol 50 mg tablet 50 mg PO TID PRN prn 12/30/23 02/05/24 History turmeric root extract 500 mg tablet 500 mg PO BID 12/30/23 02/05/24 History Past Med/Surg History Medical History Chronic back pain GERD (gastroesophageal reflux disease) History of atrial fibrillation Taking Eliquis Follows with Dr Rodriguez/Dwaine History of COVID-2021, 10/2023- mild symptoms History of kidney stones passed on own History of palpitations Holter 04/2018 WNL, few ectopic beats History of reflex sympathetic dystrophy Polyneuropathy RLE/RUE, Left upper thigh s/p 2008 injury Hx of deep venous thrombosis RLE (2022)- patient was taking Eliquis but "ran out" at the time Hx of simple renal cyst Right Hypertension Hypothyroidism Osteoarthritis Reactive hypoglycemia Renal cyst right Scoliosis Sleep apnea Does not use device Urgency of urination Surgical History History of cholecystectomy History of colonoscopy History of esophagogastroduodenoscopy (EGD) History of hysterectomy Laparoscopy History of lumbar spinal fusion L2-L3 decompression/fusion (11/12/18): Grade 1 view, MAC#3, ETT 7.0 at [facility] History of Mai fundoplication Hx of cardiac cath Diagnostic 2014- no stents Hx of foot surgery Right s/p industrial injury x7 Hx of sinus surgery x2 Nausea and vomiting after administration of anesthetic agent Patient states "unable to vomit due to mai fundoplication surgery" Family History Father Family history of diabetes mellitus Brother Family history of diabetes mellitus Sister Family hx of colon cancer Social History Smoking Status: Never smoker Second Hand Exposure: No; Do You Dip or Chew Tobacco: No; Tobacco Cessation Education Requested by Patient: No Hx Alcohol Use: Yes Alcohol type: beer Hx Substance Use: No Preferred Language: Panamanian Communication Ability: Effective Visual Impairment: Partially Limited Service Parts Coordinator Required: No Beliefs That Will Affect Care: None Current Living Situation: Alone Other Information That Helps Us Care for You: No Feels Safe at Home: Yes Safety Concerns: Feels Safe At This Time Assistive Devices: Denture - Upper Physical Exam Physical Exam: Patient is alert and oriented Heart regular rhythm Lungs clear Results & Data Results & Data Vital Signs (Past 12 Hours) Vital Signs Temp Pulse Resp BP Pulse Ox O2 Del Method 02/05/24 11:18 36.9 C 66 20 174/86 H 97 Room Air
--- NOTE | 2024-02-05 12:45 | History & Physical Bridge Note ---
Date of Service February 05, 2024 History & Physical Bridge Note I have examined the patient, reviewed the History & Physical and in the interval since the performance of the History & Physical I have noted the following changes of clinical significance: no changes noted
[2024-02-05] MEDS: SCOPOLAMINE 1 MG TDSY TD ONE (13:16)
[2024-02-05] MEDS: ceFAZolin 2000MG 2,000 MG/15 ML SYR IV SCH ×2 (13:19→20:14)
[2024-02-05] MEDS ORDERED: ONDANSETRON INJ 2 MG/ML 2 ML VIAL ONE (13:52)
[2024-02-05] MEDS ORDERED: ROCURONIUM BROMIDE 10 MG/ML 5 ML VIAL IV ONE (13:52)
[2024-02-05] MEDS ORDERED: GLYCOPYRROLATE 0.2 MG/ML VIAL ONE (13:52)
[2024-02-05] MEDS ORDERED: LIDOCAINE 2% 2 ML VIAL/AMP(20MG/ML) INFIL ONE (13:52)
[2024-02-05] MEDS ORDERED: diphenhydrAMINE 50 MG/ML VIAL ONE (13:52)
[2024-02-05] MEDS ORDERED: PROPOFOL IV EMULSION 10 MG/ML 20 ML VIAL IV ONE ×2 (13:52)
[2024-02-05] MEDS ORDERED: DEXAMETHASONE SOD INJ 4 MG/ML VIAL ONE (13:52)
[2024-02-05] MEDS ORDERED: SUGAMMADEX SODIUM 200 MG/2 ML VIAL IV ONE (14:28)
[2024-02-05] MEDS: ceFAZolin 330 MG/ML 1 GM VIAL ONE (14:28)
[2024-02-05] MEDS: BUPIVACAINE/EPINEPHRINE 0.5% MPF 1:200,000 30 ML VIAL ONE (14:28)
[2024-02-05] MEDS: FLOSEAL HEMOSTATIC MATRIX 10ML TOP ONE (14:29)
--- NOTE | 2024-02-05 14:42 | Operative Report ---
Post Operative Report Pre & Post Diagnosis Operation Date: 02/05/24 12:35 Pre-Op Diagnosis: Neurogenic Claudication due to Lumbar Spinal Stenosis Post-Op Diagnosis: Neurogenic Claudication due to Lumbar Spinal Stenosis I identified the patient and participated in the time-out.: Yes Procedure Operation Date: 02/05/24 12:35 Actual Procedures #1 removal of posterior instrumentation L2-L3. #2 exploration of fusion L2-3 per #3 decompression L1-L2 with bilateral medial facetectomies and foraminotomies. #4 posterior spinal fusion L1-L2. #5 there is posterior instrumentation L1-L3. #6 interbody fusion L1-L2. #7 placement Spira 9 x 26 mm L1-L2. #8 placement locally harvested morselized autograft and posterior gutters were #9 placement infuse collagen sponge combined with Koros bone graft in the posterior lateral gutters. Surgeon Juan M Padron, Sizer Hand Clarence Romo Estimated Blood Loss 25 Findings Consistent with Post-Op Diagnosis Specimens None Indications This is a 63-year-old female presents problems diagnosis of failed course of nonoperative care she is here for surgical invention. Description of Procedure Patient was met with identified informed consent obtained. Patient was then taken to the operative suite underwent a patient placed in a prone position on the Andrews table top Sotero frame. All bony promises well-padded eyes inspected to ensure no external pressure upon them. This point lumbar spine was prepped and draped in a sterile fashion. Sharp dissection with the assistance of Bovie cautery was then performed down to expose the lamina transverse processes of L1 and instrumentation L2-L3 bilaterally. I then proceeded move the hardware at L2-L3 explore the fusion mass noted to be mature and intact. Then performed a complete laminectomy of L1 including bilaterally facetectomies and foraminotomies addressing severe spinal stenosis. Pedicle screws were then placed in L1-L2-L3 bilaterally with assistance of fluoroscopy the pelvis as rosey contoured and placed. By way of transforaminal approach on the left complete d iscectomy of L1-L2 was performed endplates guided to subcortical mean bone and a 9 x 26 mm Spira cage filled with Morpheus bone graft tapped in position. The rods were then locked into final position bilaterally. The transverse processes of L1-L2 and L3 burred to subcortical bleeding bone. Infuse collagen sponge, mass graft leg autograft placed in the posterior lateral gutters. 15 round HERNANDEZ drain inserted. The incision was then closed with 1 Vicryl the fascia 2-0 Vicryl subcutaneously and 4 Monocryl for final skin closure. Steri-Strips sterile dressings placed. Patient waken taken to PACU stable condition. Please note spinal cord monitoring was utilized at the procedure no changes noted. Lastly Clarence Romo was present at the entire surgeon while the patient positioning complex portion of the surgery and final skin closure. I attest to the content of the Intraoperative Record and any orders documented therein. Any exceptions are noted below.
--- NOTE | 2024-02-05 14:46 | Fluoroscopy Report ---
FL lumbar spine 2-3V CLINICAL HISTORY: L1-L2 DECOMPRESSION AND FUSION L2-L3 HW REMOVAL COMPARISON STUDY: CT of the abdomen and pelvis November 10, 2019. Lumbar spine fluoroscopic images D [id number]. FLUOROSCOPY TIME: 13 seconds. Ka, r: 7.22 mGy FLUOROSCOPIC IMAGES: 2 FINDINGS: Fluoroscopy was provided during hardware removal at the L2-L3 level with replacement. Inter perfecto L1-L2 discectomy, decompression and fusion is noted. There are bilateral pedicle screws at the L2 , L3 and L4 levels. IMPRESSION: Fluoroscopy provided during L2-L3 revision and interval L2-L1 decompression and fusion. ACT 112: Negative or not required by law. Electronically signed by: Ti Marte M.D. 02/05/2024 2:45 PM
[2024-02-05] MEDS: fentaNYL citrate PF 100 MCG/2 ML VIAL IV PRN (15:10)
[2024-02-05] MEDS: ONDANSETRON INJ 2 MG/ML 2 ML VIAL IV PRN ×2 (15:10→17:04)
[2024-02-05] MEDS ORDERED: PROMETHAZINE HCL 6.25 MG in SODIUM CHLORIDE 0.9% 50 ML IV PRN (15:18)
--- NOTE | 2024-02-05 15:37 | Anesthesiology Progress Note ---
Date of Service February 05, 2024 Anesthesia Post Procedure Vital Signs Vital Signs: Temp Pulse Pulse Resp BP Pulse Ox O2 Del Method 02/05/24 15:25 61 10 L 151/77 H 98 Nasal Cannula 02/05/24 15:15 69 19 162/81 H 98 Nasal Cannula 02/05/24 15:05 82 15 134/105 H 100 Oxymask 02/05/24 14:58 36.1 C L 80 16 143/80 H 98 Oxymask 02/05/24 11:18 36.9 C 66 20 174/86 H 97 Room Air O2 Flow Rate 02/05/24 15:25 4 02/05/24 15:15 4 02/05/24 15:05 4 02/05/24 14:58 10 02/05/24 11:18 Pain Intensity Back: Pain Intensity: 5 Transfer of Care Handoff Completed per policy Notes Mental Status: alert / awake / arousable Patient Amnestic to Procedure: Yes Nausea / Vomiting: adequately controlled Pain: adequately controlled Airway Patency, RR, SpO2: stable & adequate BP & HR: stable & adequate Hydration State: stable & adequate Anesthetic Complications: no major complications apparent and Pt Satisfied with anesthetic care
[2024-02-05] MEDS ORDERED: hydrOXYzine HCl 25 MG TAB PO PRN (15:48)
[2024-02-05] MEDS ORDERED: NALOXONE HCL 0.4 MG/1 ML VIAL/CARP IV PRN (15:48)
[2024-02-05] MEDS ORDERED: bisacodyL 10 MG SUPP PR PRN (15:48)
[2024-02-05] MEDS ORDERED: HYDROmorphone INJ 0.5 MG/0.5 ML SYR IV PRN (15:48)
[2024-02-05] MEDS ORDERED: FAMOTIDINE 20 MG TAB PO PRN (15:48)
[2024-02-05] MEDS ORDERED: traMADol HCL 50 MG TABLET PO PRN (15:48)
[2024-02-05] MEDS ORDERED: LORazepam 0.5 MG in SYRINGE 0.25 ML IV PRN (15:48)
[2024-02-05] MEDS ORDERED: LORazepam 0.5 MG TAB PO PRN (15:48)
[2024-02-05] MEDS ORDERED: DO NOT ADMINISTER FLU VACCINE PRN (15:48)
[2024-02-05] MEDS ORDERED: DO NOT ADMINISTER PNEUMOCOCCAL VACCINE PRN (15:48)
[2024-02-05] MEDS ORDERED: ALUMINUM/MAGNESIUM SUSP 30 ML UDC PO PRN (15:48)
[2024-02-05] MEDS ORDERED: ACETAMINOPHEN 1,000 MG/100 ML VIAL IV PRN (15:48)
[2024-02-05] MEDS ORDERED: SOD PHOSPHATE/SOD BIPHOSPHATE ENEMA 132 ML BTL PR PRN (15:48)
[2024-02-05] MEDS ORDERED: METOCLOPRAMIDE HCL INJ 5 MG/ML 2 ML VIAL IV PRN (15:48)
[2024-02-05] MEDS ORDERED: MAGNESIUM HYDROXIDE SUSP 30 ML UDC PO PRN (15:48)
[2024-02-05] MEDS ORDERED: ONDANSETRON 4 MG OD TAB PO PRN (15:48)
[2024-02-05] MEDS ORDERED: diphenhydrAMINE Capsule 25 MG CAP PO PRN (15:48)
[2024-02-05] MEDS: LACTATED RINGER'S 1,000 ML IV SCH (16:01)
--- NOTE | 2024-02-05 17:30 | Consultation ---
Date of Consultation February 05, 2024 Assessment & Plan (1) Status post lumbar surgery: (2) Neurogenic claudication due to lumbar spinal stenosis: Post op day# 0 S/P removal of prior instrumentation L2-L3 and decompression fusion L1-L2 by Dr Nereida ROBLES#25ml Pain management per ortho Wound management per ortho PT/OT as appropriate DVT prophylaxis per ortho Incentive spirometry Monitor H&H for acute blood loss anemia; pre-op Hgb: 12 (3) Hypertension: Stable Continue losartan, metoprolol (4) History of atrial fibrillation: Anticoagulated on Eliquis Eliquis currently on hold, resume as able per orthospine Continue metoprolol, flecainide (5) GERD (gastroesophageal reflux disease): History Mai fundoplication Continue PPI (6) Hypothyroidism: Continue levothyroxine (7) Sleep apnea: Intolerant to CPAP DVT Prophylaxis SCDs Disposition per primary service Follows with Jackelyn Morales PA-C in [place] for routine care Pt was seen and care coordinated with Dr Lee. See addendum Thank you for this consultation. We will follow the patient with you during their hospital stay. You can reach a member of the [facility] Hospitalist Team 08/06 via [facility] Supervising Physician Co-Signing Physician Notes I have seen and examined the patient and have discussed the case with the provider above. I have reviewed the advanced practitioner's documentation, and I agree with, and take responsibility for that plan of care. Some nausea post- operatively which is concerning her with her h/o Mai fundoplication. She was just given Zofran IV and feeling better. Not reliably tolerating PO. Cont supportive care. Meds reviewed. Agree with plan as noted above. Will continue to follow her progress post-operatively. DO Jesus History of Present Illness Requesting Physician: Dr. Padron Reason for Consultation: Postop medical management Attending Physician: Juan M Padron DO History of Present Illness Patient is 63-year-old female with PMH HTN, paroxysmal atrial fibrillation anticoagulated on Eliquis, history of DVT, GERD, hypothyroidism, polyneuropathy, history Mai fundoplication seen in medical consultation s/p removal of prior instrumentation L2-L3 and decompression fusion L1-L2 today by Dr. Padron. Patient examined was sleeping and lying supine in bed. Easily aroused with voice. Postop patient reports nausea and some pain. Denies fever/chills, diaphoresis, V/D/C, RIVERA, dizziness, syncope, neck pain, CP, SOB, cough, rhinorrhea, abdominal pain, weakness, extremity edema, rashes, urinary symptoms. Allergies Allergy/AdvReac Type Severity Reaction Status Date / Time Sulfa (Sulfonamide Allergy Intermediate Rash Verified 02/05/24 10:58 Antibiotics) azithromycin AdvReac Severe Severe Verified 02/05/24 10:58 [From Zithromax Z-Ernesto] abdominal pain Home Medications Medication Instructions Recorded Confirmed Type aspirin 81 mg tablet,delayed 81 mg PO QAM 10/21/18 02/05/24 History release (Aspir-) levocetirizine 5 mg tablet 5 mg PO QAM 10/21/18 02/05/24 History levothyroxine 125 mcg capsule 125 mcg PO QAM 10/21/18 02/05/24 History losartan 50 mg tablet 50 mg PO QAM 10/21/18 02/05/24 History pantoprazole 40 mg tablet,delayed 40 mg PO BID 10/21/18 02/05/24 History release azelastine 137 mcg (0.1 %) nasal 2 spray intranasal DAILY 01/09/21 02/05/24 History spray aerosol Ligaplex 2 1 cap PO BID 12/30/23 02/05/24 History amitriptyline 10 mg tablet 10 mg PO HS 12/30/23 02/05/24 History apixaban 5 mg tablet (Eliquis) 5 mg PO BID 12/30/23 02/05/24 History docusate sodium 1 cap PO QAM PRN prn 12/30/23 02/05/24 History flecainide 50 mg tablet 50 mg PO Q12H 12/30/23 02/05/24 History metoprolol succinate 25 mg 25 mg PO BID 12/30/23 02/05/24 History tablet,extended release 24 hr ondansetron 8 mg disintegrating 8 mg PO Q8H PRN Nausea 12/30/23 02/05/24 History tablet tramadol 50 mg tablet 50 mg PO TID PRN prn 12/30/23 02/05/24 History turmeric root extract 500 mg tablet 500 mg PO BID 12/30/23 02/05/24 History Patient History Medical History (Updated 02/05/24 @ 18:42 by Nandini Kingston PA-C) Scoliosis History of kidney stones passed on own Reactive hypoglycemia Hx of deep venous thrombosis RLE (2022)- patient was taking Eliquis but "ran out" at the time History of COVID-19 2021, 10/2023- mild symptoms History of atrial fibrillation Taking Eliquis Follows with Dr Rodriguez/Dwaine Urgency of urination Renal cyst right Hypothyroidism Osteoarthritis Chronic back pain Hx of simple renal cyst Right GERD (gastroesophageal reflux disease) History of reflex sympathetic dystrophy Polyneuropathy RLE/RUE, Left upper thigh s/p 2008 injury Sleep apnea Does not use device History of palpitations Holter 04/2018 WNL, few ectopic beats Hypertension Surgical History (Updated 02/05/24 @ 18:36 by Nandini Kingston PA-C) History of lumbar spinal fusion L2-L3 decompression/fusion (11/12/18): Grade 1 view, MAC#3, ETT 7.0 at [facility] History of Mai fundoplication History of cholecystectomy Hx of cardiac cath Diagnostic 2014- no stents Nausea and vomiting after administration of anesthetic agent Patient states "unable to vomit due to mai fundoplication surgery" History of esophagogastroduodenoscopy (EGD) History of colonoscopy History of hysterectomy Laparoscopy Hx of sinus surgery x2 Hx of foot surgery Right s/p industrial injury x7 Family History Father Family history of diabetes mellitus Brother Family history of diabetes mellitus Sister Family hx of colon cancer Social History Smoking Status: Never smoker Second Hand Exposure: No; Do You Dip or Chew Tobacco: No; Tobacco Cessation Education Requested by Patient: No Hx Alcohol Use: Yes Alcohol type: beer Hx Substance Use: No Preferred Language: Spanish Communication Ability: Effective Visual Impairment: Partially Limited Insulation Worker Required: No Beliefs That Will Affect Care: None Current Living Situation: Alone Other Information That Helps Us Care for You: No Feels Safe at Home: Yes Safety Concerns: Feels Safe At This Time Assistive Devices: Denture - Upper and Glasses Review of Systems Review of Systems: All systems reviewed & are unremarkable except as noted in HPI & below Physical Exam Physical Exam: General: +drowsy, awakens easily to voice, WDWN Head: normocephalic, atraumatic Eyes: conjunctiva non-injected, anicteric ENT: normal inspection external ears, nose, mucous membranes moist Neck: supple, trachea midline Lungs: clear, no respiratory distress, no wheezing/rhonchi/rales CV: RRR, no pretibial edema Abd: normal BS, soft, non-tender Back: surgical dressing in place, +HERNANDEZ drain with serosanguineous fluid Ext: no cyanosis, no calf tenderness, pedal pushes and pulls intact bilaterally, sensation to light touch intact Neuro: +drowsy, oriented x 3, no focal deficits noted, normal affect Skin: warm, dry Results & Data Vital Signs (Past 12 Hours) Vital Signs Temp Pulse Pulse Resp BP Pulse Ox O2 Del Method 02/05/24 16:58 36.5 C 74 15 136/77 94 Room Air 02/05/24 16:26 36.8 C 67 14 158/88 H 100 Nasal Cannula 02/05/24 15:52 36.6 C 64 14 163/92 H 97 Nasal Cannula 02/05/24 15:35 36.4 C L 67 12 149/81 H 98 Nasal Cannula 02/05/24 15:25 61 10 L 151/77 H 98 Nasal Cannula 02/05/24 15:15 69 19 162/81 H 98 Nasal Cannula 02/05/24 15:05 82 15 134/105 H 100 Oxymask 02/05/24 14:58 36.1 C L 80 16 143/80 H 98 Oxymask 02/05/24 11:18 36.9 C 66 20 174/86 H 97 Room Air O2 Flow Rate 02/05/24 16:58 02/05/24 16:26 2 02/05/24 15:52 2 02/05/24 15:35 2 02/05/24 15:25 4 02/05/24 15:15 4 02/05/24 15:05 4 02/05/24 14:58 10 02/05/24 11:18
[2024-02-05] MEDS: METOPROLOL SUCC 25MG EXT REL TAB PO SCH (20:10)
[2024-02-05] MEDS: FLECAINIDE ACETATE 100 MG TABLET PO SCH (20:10)
[2024-02-05] MEDS: PANTOprazole 40 MG TAB PO SCH (20:10)
[2024-02-05] MEDS: AMITRIPTYLINE HCL 10 MG TAB PO SCH (20:11)
[2024-02-05] MEDS: DOCUSATE SODIUM/SENNA 50/8.6MG TAB PO SCH (20:11)
[2024-02-05] MEDS: PROMETHAZINE HCL 12.5 MG in SODIUM CHLORIDE 0.9% 50 ML IV PRN (20:28)
[2024-02-05] MEDS: oxyCODONE HCL IR 5 MG TAB (IMMEDIATE RELEASE) PO PRN (23:35)
--- OUTSIDE RECORDS SUMMARY | 2024-02-06 01:06 | External Medical Summary | Continuity of Care Document ---
Author Name Unknown Address [address] [place] [address] Phone Organization [facility] Address [address] [place] [address] Phone Support Name Relationship Address Phone Jackelyn Morales Primary Care Provider [address] [place] [address] Clarence Romo Attending Provider [address] [place] [address] Victoriano Flores Emergency Provider [address] [place] [address] Chief Complaint and Reason for Visit Chief Complaint Lumbar Radiculopathy nausea Allergies, Adverse Reactions, Alerts Allergen Type Severity Reaction Last Updated Verified Status azithromycin Allergy Unknown severe abdomina l pain January 23, 2024 4:56pm Yes Active Sulfa (Sulfonamide Antibiotics) Allergy Unknown Skin Rash January 23, 2024 4:56pm Yes Active Social History Smoking Status Status Start Date End Date Date of Observa tion Never smoked tobacco (finding) January 23, 2024 3:56pm Observation Status Observation Response Date of Response Lives Alone November 25 2:42pm Smokeless Tobacco Use None June 3:58pm Current Tobacco Use None January 22 024 4:56pm Additional Data Assigned Sex Female Family History Relationship Condition Age at Onset Recorded Date/T domingo Parent Depression Unknown Malignant neoplasm of breast 85 Hypertension Unknown Sibling Diabetes mellitus Unknown Parent Diabetes mellitus Unknown Heart disease Unknown Hypertension Unknown Sibling Malignant neoplasm of ovary 36 Malignant neoplasm of colon 49 Problems Active Problems Medical Problem Onset Date Status History of migraine headaches Ac tive Simple renal cyst Active History of ankle surgery Active Intervertebral disc rupture Acti ve Low back pain Active Hypothyroidism (acquired) Active Cellulitis and abscess Active Sleep apnea Active Disorder of paranasal sinus Acti ve Status post operation on paranasal sinus Active Rupture of diaphragm Active High blood cholesterol Active Back pain Active Cluster headaches Active Depression Active Edema Active Neuropathy Active Vertigo September 25, 2014 Active Epigastric pain Active Status post hysterectomy Active Status post colonoscopy January 12, 2015 Acti ve Dental abscess Active Gastroesophageal reflux disease Active Gastric ulcer Active Nausea & vomiting Active Chest pain Active Hypertension Active Cardiomyopathy Active Reflex sympathetic dystrophy Act anabel Constipation Active Disorder of thyroid Active Atrial fibrillation with rapid ventricular respo nse Active Superficial thrombophlebitis of right leg Active Medications Medication Status Dose Units Route Directions Qty Days St art Date End Date Instructions Levothyroxine Sodium Disconti nued 125 MCG PO daily January 19, 2020 1:00am Novemb er 2019 8:22am Ibuprofen (Motrin) 800 mg tablet Disconti nued 800 MG PO QID January 19, 2020 7:43am March 01, 2020 7:31am Levocetirizin e Dihydrochlori de Disconti nued 5 MG PO daily January 19, 2020 1:00am Februa 2020 12:52p m Cefuroxime Axetil (Ceftin) 500 mg tablet Disconti nued 500 MG PO Twice Daily 29 05February 22, 2020 12:00am February 29, 2020 12:01a m Fluconazole Disconti nued 150 MG PO Once February 22, 2020 12:00am March 26, 2020 3:24pm Ibuprofen (Motrin) 800 mg tablet Disconti nued 800 MG PO QID March 01, 2020 7:31am April 16, 2020 6:57am Losartan Potassium (Cozaar) 50 mg tablet Disconti nued 50 MG PO daily March 15, 2020 12:00am Sept2019 11:06a m Fluconazole Disconti nued 150 MG PO Once March 26, 2020 3:22pm 2019 8:50am Amoxicillin/P otassium Clav (Augmentin 875-125 Mg Tab) 875-125 mg tablet Disconti nued 1 TAB PO Twice Daily March 26, 2020 12:00am Sept2019 8:49am Prednisone Disconti nued 0 PO per package directions March 26, 2020 12:00am Sept2019 9:59am PO PER PKG DIR Ibuprofen (Motrin) 800 mg tablet Disconti nued 800 MG PO QID 90 April 16, 2020 6:57am Februa 2020 12:52p m Amoxicillin/P otassium Clav (Augmentin 875-125 Mg Tab) 875-125 mg tablet Disconti nued 1 TAB PO Twice Daily April 16, 2020 12:00am Septem 2019 8:50am Ondansetron (Ondansetron Odt) 4 mg tablet,disint egrating Disconti nued 4 MG PO Twice Daily 180 April 30, 2020 12:00am Septem bharat 2019 10:01a m Amoxicillin/P otassium Clav (Augmentin 875-125 Mg Tab) 875-125 mg tablet Disconti nued 1 TAB PO Twice Daily 20 May 10, 2020 12:00am May 20, 2020 12:01a m Ropinirole Hcl Disconti nued 1 MG PO Every Night July 16, 2020 12:00am May 24, 2021 8:42am administer 1-3 hours before bedtime DUE FOR APPOINTMENT Sumatriptan Succinate Disconti nued 100 MG PO Q2H 10 2019 12:00am Octobe r 2019 1:28pm do not exceed 2 doses per 24 hrs Sumatriptan Succinate Disconti nued 100 MG PO Q2H 10 0 August 24, 2020 1:28pm Octobe r 2019 3:53pm do not exceed 2 doses per 24 hrs Tramadol Hcl Disconti nued 50 MG PO daily 3 August 31, 2020 12:00am Octobe r 2019 12:01a m Sumatriptan Succinate Disconti nued 100 MG PO Q2H 36 August 31, 2020 3:49pm 2020 1:02am do not exceed 2 doses per 24 hrs Levothyroxine Sodium Disconti nued 125 MCG PO daily 2019 8:22am June 14, 2021 7:52am Losartan Potassium (Cozaar) 100 mg tablet Disconti nued 0 .ROUTE .COMPLEX r 2019 8:19am Februa 2020 9:19am TAKE 1 TABLET EVERY DAY Levocetirizin e Dihydrochlori de Disconti nued 5 MG PO daily y 2020 12:52pm June 14, 2021 7:52am Ibuprofen (Motrin) 800 mg tablet Disconti nued 800 MG PO QID 2020 12:52pm June 20, 2021 10:58a m Losartan Potassium (Cozaar) 100 mg tablet Disconti nued 0 .ROUTE .COMPLEX y 2020 9:19am June 14, 2021 7:52am TAKE 1 TABLET EVERY DAY Amoxicillin/P otassium Clav (Augmentin 875-125 Mg Tab) 875-125 mg tablet Disconti nued 1 TAB PO Twice Daily January 22, 2021 1:00am April 26, 2021 2:51pm Sumatriptan Succinate Disconti nued 100 MG PO Q2H 36 February 25, 2021 8:19am May 24, 2021 9:20am do not exceed 2 doses per 24 hrs Amoxicillin/P otassium Clav (Augmentin 875-125 Mg Tab) 875-125 mg tablet Disconti nued 1 TAB PO Twice Daily May 16, 2021 12:00am May 24, 2021 9:24am Fluconazole Disconti nued 150 MG PO Every 3 Days 2 May 21, 2021 12:00am May 24, 2021 8:41am Fluconazole Disconti nued 150 MG PO Once May 31, 2021 12:00am June 20, 2021 10:57a m as a single dose Levothyroxine Sodium (Synthroid) 125 mcg tablet Disconti nued 125 MCG PO daily June 14, 2021 7:52am June 20, 2021 10:58a m Levocetirizin e Dihydrochlori de Disconti nued 5 MG PO daily June 14, 2021 7:52am Octobe r 2020 9:20am Losartan Potassium (Cozaar) 100 mg tablet Disconti nued 0 .ROUTE .COMPLEX June 14, 2021 7:52am June 17, 2021 4:37pm TAKE 1 TABLET EVERY DAY Sumatriptan Succinate Disconti nued 100 MG PO Q2H 36 July 11, 2021 10:59am Novemb er 2020 4:17pm do not exceed 2 doses per 24 hrs Levothyroxine Sodium Disconti nued 88 MCG PO 0600 30 Septemb er 2020 10:16am Novemb er 2020 12:35p m Levocetirizin e Dihydrochlori de Active 5 MG PO daily August 28, 2021 9:20am Tramadol Hcl Disconti nued 50 MG PO Twice Daily 10 August 28, 2021 9:21am Octobe r 2020 1:08pm Tramadol Hcl Disconti nued 50 MG PO Twice Daily 08 20August 28, 2021 1:08pm Octobe r 2020 12:08a m Levothyroxine Sodium Active 88 MCG PO 0600 Novembe r 2020 12:35pm Sumatriptan Succinate Active 100 MG PO Q2H 36 Novembe r 2020 4:17pm do not exceed 2 doses per 24 hrs Clindamycin Hcl Active 300 MG PO QID 40 Dece r 2020 1:39pm Ibuprofen (Motrin) 800 MG tablet Disconti nued 800 MG PO TID August 25, 2018 8:39pm January 19, 2020 7:44am Losartan Potassium (Cozaar) 100 MG tablet Disconti nued 0 .Route Daily June 17, 2021 4:37pm June 20, 2021 10:57a m TAKE 1 TABLET EVERY DAY Amiodarone Hcl (Cordarone) 200 MG tablet Disconti nued 200 MG PO Twice Daily June 20, 2021 12:00am Septem bharat 2020 11:53a m 200 mg twice daily for 14 days, then decrease to 200 mg once daily Apixaban (Eliquis) 5 MG tablet Active 5 MG PO Twice Daily June 20, 2021 12:00am Aspirin (Ecotrin) 81 MG tablet,delaye d release (DR/EC) Active 81 MG PO Daily June 20, 2021 12:00am Clindamycin Hcl (Cleocin) 150 MG capsule Disconti nued 150 MG PO Q8H June 20, 2021 12:00am Septem bharat 2020 11:53a m Levothyroxine Sodium (Synthroid) 88 MCG tablet Disconti nued 88 MCG PO 0600 June 20, 2021 12:00am Septem bharat 2020 10:16a m Polyethylene Glycol 3350 (Miralax) 17 GM powder in packet Active 17 GM PO Daily June 20, 2021 12:00am Potassium Chloride (Klor-Con) 10 MEQ tablet,ER particles/cry stals Active 20 MEQ PO Daily June 20, 2021 12:00am Gi Cocktail Active 40 ML PO Before Meals & Bed 400 2020 2:11am Metoclopramid e Hcl (Reglan) 10 MG tablet Active 10 MG PO QID 30 er 2020 2:11am Famotidine (Pepcid) 20 MG tablet Disconti nued 20 MG PO Twice Daily 60 2020 12:00am January 23, 2024 6:31pm Sucralfate (Carafate) 1 GM tablet Active 1 GM PO QID January 30, 2022 12:00am Sucralfate (Carafate) 1 GM tablet Active 1 GM PO QID January 30, 2022 12:00am Dicyclomine Hcl (Bentyl) 10 MG capsule Active 10 MG PO Q6H 30 January 23, 2024 1:00am Metoclopramid e Hcl Active 10 MG PO TID 21 January 23, 2024 6:31pm Famotidine (Pepcid) 20 MG tablet Active 20 MG PO Twice Daily 60 January 23, 2024 6:31pm Pantoprazole Sodium (Protonix) 40 mg tablet,delaye d release (DR/EC) Active 40 MG PO Every Morning 30 er 2019 12:00am Ondansetron (Ondansetron Odt) 8 mg tablet,disint egrating Disconti nued 8 MG PO QID 120 1 er 2019 12:00am Septem bharat 2019 12:02a m Losartan Potassium (Cozaar) 100 mg tablet Disconti nued 100 MG PO daily 30 2019 11:05am [facility] er 2019 8:19am Azelastine Hcl Active 2 SPRAY intrana luis m Twice Daily r 2019 1:00am Kasie Root/Pyridoxi ne Hcl(B6) (Vicectin 25-325 Mg Capsule) 325-25 mg capsule Disconti nued CAP PO January 25, 2021 1:00am May 24, 2021 8:41am Tramadol Hcl Disconti nued 50 MG PO Twice Daily 10 5 January 25, 2021 1:00am January 30, 2021 12:02a m Verapamil Hcl (Verapamil Er) 120 mg capsule,ext rel. pellets 24 hr Disconti nued 120 MG PO Daily April 26, 2021 12:00am June 20, 2021 10:58a m Prednisone Disconti nued 0 PO per package directions April 26, 2021 12:00am April 26, 2021 3:22pm PO PER PKG DIR Prednisone Disconti nued 0 PO per package directions April 26, 2021 3:21pm April 26, 2021 3:39pm PO PER PKG DIR Prednisone Disconti nued 0 PO per package directions April 26, 2021 3:39pm May 24, 2021 8:42am PO PER PKG DIR Saccharomyces Boulardii Active 250 MG PO daily May 24, 2021 12:00am Ondansetron Hcl Active 8 MG PO 2 to 3 times per day May 24, 2021 12:00am Sumatriptan Succinate Disconti nued 100 MG PO Q2H 36 May 24, 2021 9:19am June 17, 2021 4:37pm do not exceed 2 doses per 24 hrs Clindamycin Hcl Disconti nued 150 MG PO TID 30 10 May 24, 2021 12:00am June 03, 2021 12:03a m Flecainide Acetate Active 0 PO .COMPLEX Septemb er 2020 12:00am PO patient states 50mg bid; Galcanezumab- Gnlm (Emgality Pen) 120 mg/mL pen injector Active 120 MG SUBCUT every month 2020 12:00am Metoprolol Succinate (Toprol Xl) 25 mg tablet extended release 24 hr Active 25 MG PO daily 90 August 16, 2021 12:00am Clindamycin Hcl Disconti nued 300 MG PO QID 40 August 16, 2021 12:00am Dece er 2020 1:40pm Fluconazole Active 100 MG PO daily 7 Octob er 2020 12:00am Procedures Procedure Date Performed Status Abdomen & Pelvis WO Cont January 23, 2024 5:22pm completed Lumbar Spine WO Cont January 23, 2024 5:22pm comp leted Relevant Diagnostic Tests and/or Laboratory Data Laboratory Results Test Date/Time Result Interpretation Reference Range Result Comment Performing Site White Blood Count January 23, 2024 5:05pm 4.1 10^3/uL 4.1-10.2 [facility] [id number] [address] [facility] [place] [address] Red Blood Count January 23, 2024 5:05pm 4.42 10^6/uL 3.80-5.20 [facility] [id number] [address] [facility] [place] [place] [address] Hemoglobin January 23, 2024 5:05pm 12.7 g/dL 11.5-15.5 [facility] [id number] [address] [facility] [place] [address] Hematocrit January 23, 2024 5:05pm 38.7 % 35-46 [facility] [id number] [address] [facility] [place] [address] Mean Corpuscular Volume January 23, 2024 5:05pm 87.6 fL 82.0-98.0 [facility] [id number] [address] [facility] [place] [place] [address] Mean Corpuscular Hemoglobin January 23, 2024 5:05pm 28.7 pg 27.0-34.0 [facility] [id number] [address] [facility] [place] [place] [address] Mean Corpuscular Hemoglobin Concent January 23, 2024 5:05pm 32.8 g/dL 31.0-36.0 [facility] [id number] [address] [facility] [place] [place] [address] RDW Standard Deviation January 23, 2024 5:05pm 40.0 fL 37-49 [facility] [id number] [address] [facility] [place] [place] [address] RDW Coefficient of Variation January 23, 2024 5:05pm 12.5 % 11.8-14.8 [facility] [id number] [address] [place] [address] Platelet Count January 23, 2024 5:05pm 221 10^3/uL 150-360 [facility] [id number] [address] [place] [address] Mean Platelet Volume January 23, 2024 5:05pm 9.2 fL 9.4-12.3 [facility] [id number] [address] [place] [address] Neutrophils (%) (Auto) January 23, 2024 5:05pm 53.4 % 42-75 [facility] [id number] [address] [place] [address] Lymphocytes (%) (Auto) January 23, 2024 5:05pm 33.6 % 14-42 [facility] [id number] [address] [place] [address] Monocytes (%) (Auto) January 23, 2024 5:05pm 10.6 % 4-13 [facility] [id number] [address] [place] [address] Eosinophils (%) (Auto) January 23, 2024 5:05pm 1.7 % 0-6 [facility] [id number] [address] [place] [address] Basophils (%) (Auto) January 23, 2024 5:05pm 0.5 % 0-2 [facility] [id number] [address] [place] [address] Immature Granulocytes % January 23, 2024 5:05pm 0.2 % 0.0-0.7 [facility] [id number] [address] [place] [address] Neutrophils # (Auto) January 23, 2024 5:05pm 2.2 10^3uL 1.8-6.6 [facility] [id number] [address] [place] [address] Lymphocytes # (Auto) January 23, 2024 5:05pm 1.4 10^3/uL 1.0-3.1 [facility] [id number] [address] [place] [address] Monocytes # (Auto) January 23, 2024 5:05pm 0.4 10^3uL 0.0-1.0 [facility] [id number] [address] [place] [address] Eosinophils # (Auto) January 23, 2024 5:05pm 0.1 10^3uL 0.0-0.5 [facility] [id number] [address] [place] [address] Basophils # (Auto) January 23, 2024 5:05pm 0.0 10^3/uL 0.0-0.1 [facility] [id number] [address] [facility] [place] [address] Urine Color January 23, 2024 5:18pm Yellow Yellow [facility] [id number] [address] [place] [address] Urine Clarity January 23, 2024 5:18pm Clear Clear [facility] [id number] [address] [place] [address] Urine pH January 23, 2024 5:18pm 5.5 6.0-8.0 [facility] [id number] [address] [place] [address] Urine Specific [place] January 23, 2024 5:18pm 1.025 1.000-1.03 0 [facility] [id number] [address] [place] [address] Urine Protein January 23, 2024 5:18pm Negative Negative [facility] [id number] [address] [place] [address] Urine Glucose (UA) January 23, 2024 5:18pm Negative Negative [facility] [id number] [address] [place] [address] Urine Ketones January 23, 2024 5:18pm Negative Negative [facility] [id number] [address] [place] [address] Urine Occult Blood January 23, 2024 5:18pm Trace-int act Negative [facility] [id number] [address] [place] [address] Urine Nitrate January 23, 2024 5:18pm Negative Negative [facility] [id number] [address] [place] [address] Urine Bilirubin January 23, 2024 5:18pm Negative Negative [facility] [id number] [address] [place] [address] Urine Urobilinogen January 23, 2024 5:18pm 1.0 0.2-1.0 [facility] [id number] [address] [place] [address] Urine Leukocyte Esterase January 23, 2024 5:18pm Negative Negative [facility] [id number] [address] [place] [address] Urine RBC January 23, 2024 5:18pm 0-3 /HPF 0-3 [facility] [id number] [address] [place] [address] Urine Culture Indicated January 23, 2024 5:18pm No Culture not indicated. [facility] [id number] [address] [place] [address] Urine Amorphous Sediment January 23, 2024 5:18pm Rare /HPF [facility] [id number] [address] [place] [address] Sodium Level January 23, 2024 5:05pm 141 mmol/L 136-145 [facility] [id number] [address] [place] [address] Potassium Level January 23, 2024 5:05pm 3.4 mmol/L 3.5-5.1 [facility] [id number] [address] [place] [address] Chloride Level January 23, 2024 5:05pm 113 mmol/L 98-107 [facility] [id number] [address] [place] [address] Carbon Dioxide Level January 23, 2024 5:05pm 25 mmol/L 21-32 [facility] [id number] [address] [place] [address] Anion Gap January 23, 2024 5:05pm 3.0 MMOL/L 1.0-15.0 [facility] [id number] [address] [facility] [place] [address] Blood Urea Nitrogen January 23, 2024 5:05pm 19 mg/dL 7-18 [place] [id number] [address] [facility] [place] [address] Creatinine January 23, 2024 5:05pm 0.80 mg/dL 0.55-1.02 [facility] [id number] [address] [facility] [place] [address] Estimated GFR (MDRD) January 23, 2024 5:05pm > 60 UNITS= mL/min/1.73m squared Unable to flag low results Results less than 60 may warrant further investigationPat ients race is not known. If the patient is , multiply the calculated GFR result provided by 1.21. GFR Estimate should not be used to alter drug dosages. [facility] [id number] [address] [facility] [place] [address] BUN/Creatinine Ratio January 23, 2024 5:05pm 23.7 10.0-20.00 [facility] [id number] [address] [facility] [place] [address] Glucose Level January 23, 2024 5:05pm 130 mg/dL 70-99 [place] [id number] [address] [facility] [place] [address] Calculated Osmolality January 23, 2024 5:05pm 285 275-295 [facility] [id number] [address] [facility] [place] [address] Calcium Level January 23, 2024 5:05pm 8.5 mg/dL 8.5-10.1 [facility] [id number] [address] [facility] [place] [address] Troponin I High Sensitivity January 23, 2024 5:05pm 4.9 ng/L 0.00-49.9 | | FEMALE: | MALE: || Low Risk (Negative) | < 50 ng/L | < 80 ng/L | | Intermediate Risk | 50 - 110 ng/L | 80 - 110 ng/L | | High Risk (Critical)| >= 111 ng/L | >= 111 ng/L | | | [facility] [id number] [address] [place] [address] Aspartate Amino Transf (AST/SGOT) January 23, 2024 5:05pm 20 U/L 15-37 [place] [id number] [address] [place] [address] Alanine Aminotransfera se (ALT/SGPT) January 23, 2024 5:05pm 20 U/L 13-56 [facility] [id number] [address] [facility] [place] [address] Alkaline Phosphatase January 23, 2024 5:05pm 63 U/L 45-117 [place] [id number] [address] [facility] [place] [address] Total Bilirubin January 23, 2024 5:05pm 0.26 mg/dL 0.20-1.[id number] [place] [address] Total Protein January 23, 2024 5:05pm 6.9 g/dL 6.40-8.20 [facility] [id number] [address] [facility] [place] [address] Albumin January 23, 2024 5:05pm 3.5 g/dL 3.4-5.0 [facility] [id number] [address] [facility] [place] [address] Globulin January 23, 2024 5:05pm 3.4 Ratio 1.3-4.[id number] [facility] [address] Albumin/Globul in Ratio January 23, 2024 5:05pm 1.0 Ratio 1.2-2.3 [facility] [id number] [address] [facility] [address] Lipase January 23, 2024 5:05pm 29 U/L 13-75 [facility] [id number] [address] [facility] [address] Diagnostic Imaging Reports Report Dictated Date/Time Dictated By Status Magnetic Resonance Imaging Report January 23, 2024 4:47pm Edilma Kaiser MD completed [facility] [address] [facility] [place], [address] Diagnostic Imaging Signed Patient: Sirisha Veras : 1960 Age: 63 Gender: F ADM Date: 01/23/24 DOS: 01/23/24 Primary Care Physician: ROSALEE Morales Ordering Physician: Victoriano Flores DO Location: ER CAT SCAN CT of the abdomen and pelvis without contrast Indication: Abdominal pain. Fall 2 weeks ago. Comparison: None. Technique: Noncontrast CT of the abdomen and pelvis was performed without intravenous contrast. No contrast was administered. Coronal and sagittal reconstructed images were reviewed. Radiation dose reduction techniques were utilized including automated exposure control, adjustment of the mA and/or KV according to the patient's size. Findings: Lung bases: The lung bases are unremarkable. There is no pleural or pericardial effusion. Liver: The liver is non-cirrhotic in its morphology. There is no CT evidence for fatty infiltration. There is no solid or cystic mass. Spleen: The spleen is unremarkable. Gallbladder: The gallbladder is surgically absent. Pancreas: No pancreatic duct dilatation is seen. There is no evidence for peripancreatic fluid collection or inflammation. Adrenal glands: The adrenal glands are unremarkable. Kidneys: 15 cm cyst in the RIGHT kidney. There is no renal collecting system dilatation or hydronephrosis. No significant perinephric stranding is seen. There is no urinary calculus. Lymph nodes: There is no evidence for significantly enlarged lymph nodes within the abdomen or pelvis. Aorta and vasculature: The aorta and iliac vessels are normal. There is no aortic aneurysm. Appendix: The appendix is normal. Colon: The colon is normal in distention. There is no wall thickening or inflammatory stranding. Small bowel: The small bowel is normal in caliber. There is no wall thickening or inflammatory stranding. There is no CT evidence for bowel obstruction. Soft tissues and bones: No acute fracture in the osseous structures. Impression: No acute finding in abdomen and pelvis. Act 112: NO - Not indicated. Dictated By:Edilma Kaiser MD Electronically Signed By: Edilma Kaiser MD Signed Date/Time:01/23/241654 Family Member Caretaker: [email or web address] Dictated Date: 01/23/241646 Transcribed Date/Time:01/23/241646 CC: Jackelyn Morales PA-C; Victoriano Flores DO ; Report Dictated Date/Time Dictated By Status Magnetic Resonance Imaging Report January 23, 2024 5:00 pm Jorge A Tong MD completed [address], [address] Diagnostic Imaging Signed Patient: Sirisha Veras : 1960 Age: 63 Gender: F ADM Date: 01/23/24 DOS: 01/23/24 Primary Care Physician: ROSALEE Morales Ordering Physician: Victoriano Flores DO Location: ER CAT SCAN CT OF THE LUMBAR SPINE WITHOUT CONTRAST Indication: Fall 2 weeks ago. Comparison: None. CT of the lumbar spine was performed at 2 mm collimation. Coronal and sagittal reconstructed images were performed. Bone and soft tissue window algorithms were provided. Radiation dose reduction techniques were utilized including automated exposure control, adjustment of the mA and/or KV according to the patient's size. Findings: Chronic surgical changes of laminectomy and posterior spinal fusion of L2-3. The thoracolumbar junction is normal. The lumbosacral junction is maintained. The lumbar alignment shows mild scoliosis. There is no significant spondylolisthesis. There is no paraspinous mass or collection. The vertebral body heights are maintained. There is no CT evidence for fracture. IMPRESSION: No acute fracture or malalignment. Act 112: NO - Not indicated. Dictated By:Jorge A Tong MD Electronically Signed By: Jorge A Tong MD Signed Date/Time:01/23/241701 Family Member Caretaker: [email or web address] Dictated Date: 01/23/241699 Transcribed Date/Time:01/23/241699 CC: Jackelyn Morales PA-C; Victoriano Flores DO ; Vital Signs Vital Reading Result Reference Range Collection Date/Time Weight 68.03 kg January 23, 2024 4:45pm Body Temperature 97.9 [degF] 97.6-99.6 January 23, 2024 4:45pm Heart Rate 91 /min 60-90 January 23, 2024 4:45pm Respiratory rate 16 /min 12-24 January 23, 2024 4:45pm Oxygen saturation by Pulse oximetry 95 % 95-100 January 23, 2024 4:45 pm BP Systolic 139 mm[Hg] January 23, 2024 4:45pm BP Diastolic 84 mm[Hg] January 23, 2024 4:45pm Advance Directives Advance Directive Response Recorded Date/ Time Do you have Advance Directives? No April 26, 2021 8:26am Insurance Providers Guarantor Sirisha Veras Address [address] [place] [address] Contact Info. Home Phone: Payer Policy Id Coverage Id Subscriber's Name Subscriber Id Effective Date Expiration Date Aetna Medicare MCREP [id number] Sirisha Veras [id number] Humana Gold Medicare Advantage [id number] Sirisha Veras [id number] Humana [id number] Sirisha Veras [id number] Reg 1 Claims [id number] Best Burnett [id number] Free Care [id number] Sirisha Versa [id number] Medicare [id number] Sirisha Veras [id number] Self Pay Self N/A Encounters Encounter Location(s) Arrival/Admit Date Discharge/Depart Date Provider(s) Discharged Recurring [facility]-Physical Therapy [place] January 08, 2024 11:00am January 25, 2024 3:30pm ROSALEE Romo Departed Emergency [facility]-Emergency Room January 23, 2024 4:45pm January 23, 2024 6:40pm null Functional Status Observation Response Date Recorded Current Level Of Function Mod Oswestry: 44% disa bility. November 25, 2023 2:42pm Plan of Treatment Future Tests Future scheduled test information is unavailable Pending Tests Pending diagnostic test information is unavailable Future Visits Future appointment information is unavailable Referrals to Other Providers Reason for Referral Referral Start Date Provider Provider Contact Information Provider Address Jackelyn Morales Work Phone: [address] [facility] [address] Future Procedures Future procedure information is unavailable Future Medications Future medication information is unavailable Patient Instructions [place] Diet Nausea and Vomiting, Adult (DC) Hospital Discharge Instructions Additional Instructions Your lab works today were unremarkable including your kidney function Your urinalysis did not show any signs of infection Your CAT scan of the abdomen and pelvis did not show any acute process or abnormality to explain your pain. Your CAT scan of the lumbar spine did not show any fracture or acute abnormality Please do a bland diet for the next several days to help with your abdominal discomfort. Take your medications as prescribed and follow-up with your family doctor in 3 to 5 days. You will need to see a general surgeon. If there is any worsening symptoms or concerns call your doctor or return to ER"
--- OUTSIDE RECORDS SUMMARY | 2024-02-06 01:06 | External Medical Summary | Continuity of Care Document ---
Author Name Unknown Address [address] [place] [address] Phone Organization [facility] Address [address] [place] [address] Phone Support Name Relationship Address Phone Jackelyn Morales Primary Care Provider [address] [place] [address] Clarence Romo Attending Provider [address] [place] [address] Victoriano Flores Emergency Provider [address] [place] [address] Chief Complaint and Reason for Visit Chief [...] 100 MG PO daily 30 2019 11:05am [facility] er 2019 8:19am Azelastine Hcl Active 2 [...] January 23, 2024 5:05pm 4.1 10^3/uL 4.1-10.2 [id number] [address] [facility] [place] [address] Red Blood Count January 23, 2024 5:05pm 4.42 10^6/uL 3.80-5.20 [id number] [address] [facility] [place] [address] Hemoglobin January 23, 2024 5:05pm 12.7 g/dL 11.5-15.5 [id number] [address] [facility] [place] [address] Hematocrit January 23, 2024 5:05pm 38.7 % 35-46 [id number] [address] [facility] [place] [address] Mean Corpuscular Volume January 23, 2024 5:05pm 87.6 fL 82.0-98.0 [id number] [address] [facility] [place] [address] Mean Corpuscular Hemoglobin January 23, 2024 5:05pm 28.7 pg 27.0-34.0 [id number] [address] [facility] [place] [address] Mean Corpuscular Hemoglobin Concent January 23, 2024 5:05pm 32.8 g/dL 31.0-36.0 [id number] [address] [facility] [place] [address] RDW Standard Deviation January 23, 2024 5:05pm 40.0 fL 37-49 [id number] [address] [facility] [place] [address] RDW Coefficient of Variation January 23, 2024 5:05pm 12.5 % 11.8-14.8 [id number] [address] [place] [address] Platelet Count January 23, 2024 5:05pm 221 10^3/uL 150-360 [id number] [address] [place] [address] Mean Platelet Volume January 23, 2024 5:05pm 9.2 fL 9.4-12.3 [id number] [address] [place] [address] Neutrophils (%) (Auto) January 23, 2024 5:05pm 53.4 % 42-75 [id number] [address] [place] [address] Lymphocytes (%) (Auto) January 23, 2024 5:05pm 33.6 % 14-42 [id number] [address] [facility] [place] [address] Monocytes (%) (Auto) January 23, 2024 5:05pm 10.6 % 4-13 [id number] [address] [facility] [place] [address] Eosinophils (%) (Auto) January 23, 2024 5:05pm 1.7 % 0-6 [id number] [address] [facility] [place] [address] Basophils (%) (Auto) January 23, 2024 5:05pm 0.5 % 0-2 [id number] [address] [facility] [place] [address] Immature Granulocytes % January 23, 2024 5:05pm 0.2 % 0.0-0.7 [id number] [address] [facility] [place] [address] Neutrophils # (Auto) January 23, 2024 5:05pm 2.2 10^3uL 1.8-6.6 [id number] [address] [facility] [place] [address] Lymphocytes # (Auto) January 23, 2024 5:05pm 1.4 10^3/uL 1.0-3.[id number] [place] [address] Monocytes # (Auto) January 23, 2024 5:05pm 0.4 10^3uL 0.0-1.[id number] [place] [address] Eosinophils # (Auto) January 23, 2024 5:05pm 0.1 10^3uL 0.0-0.[id number] [place] [address] Basophils # (Auto) January 23, 2024 5:05pm 0.0 10^3/uL 0.0-0.[id number] [facility] [place] [address] Urine Color January 23, 2024 5:18pm Yellow Yellow [id number] [address] [place] [address] Urine Clarity January 23, 2024 5:18pm Clear Clear [id number] [address] [place] [address] Urine pH January 23, 2024 5:18pm 5.5 6.0-8.[id number] [place] [address] Urine Specific [place] January 23, 2024 5:18pm 1.025 1.000-1.03 [id number] [place] [address] Urine Protein January 23, 2024 5:18pm Negative Negative [id number] [address] [place] [address] Urine Glucose (UA) January 23, 2024 5:18pm Negative Negative [id number] [address] [place] [address] Urine Ketones January 23, 2024 5:18pm Negative Negative [id number] [address] [place] [address] Urine Occult Blood January 23, 2024 5:18pm Trace-int act Negative [id number] [address] [place] [address] Urine Nitrate January 23, 2024 5:18pm Negative Negative [id number] [address] [place] [address] Urine Bilirubin January 23, 2024 5:18pm Negative Negative [id number] [address] [place] [address] Urine Urobilinogen January 23, 2024 5:18pm 1.0 0.2-1.[id number] [place] [address] Urine Leukocyte Esterase January 23, 2024 5:18pm Negative Negative [id number] [address] [place] [address] Urine RBC January 23, 2024 5:18pm 0-3 /HPF 0-[id number] [place] [address] Urine Culture Indicated January 23, 2024 5:18pm No Culture not indicated. [id number] [address] [place] [address] Urine Amorphous Sediment January 23, 2024 5:18pm Rare /HPF [id number] [address] [place] [address] Sodium Level January 23, 2024 5:05pm 141 mmol/L 136-[id number] [place] [address] Potassium Level January 23, 2024 5:05pm 3.4 mmol/L 3.5-5.[id number] [place] [address] Chloride Level January 23, 2024 5:05pm 113 mmol/L 98-[id number] [place] [address] Carbon Dioxide Level January 23, 2024 5:05pm 25 mmol/L 21-[id number] [place] [address] Anion Gap January 23, 2024 5:05pm 3.0 MMOL/L 1.0-15.0 [id number] 214 [facility] [place] [address] Blood Urea Nitrogen January 23, 2024 5:05pm 19 mg/dL 7-18 [place] [id number] [address] [facility] [place] [address] Creatinine January 23, 2024 5:05pm 0.80 mg/dL 0.55-1.02 [id number] [address] [facility] [place] [address] Estimated GFR (MDRD) January 23, 2024 5:05pm > 60 UNITS= mL/min/1.73m squared Unable to flag low results Results less than 60 may warrant further investigationPat ients race is not known. If the patient is , multiply the calculated GFR result provided by 1.21. GFR Estimate should not be used to alter drug dosages. [id number] [address] [facility] [place] [address] BUN/Creatinine Ratio January 23, 2024 5:05pm 23.7 10.0-20.00 [id number] [address] [facility] [place] [address] Glucose Level January 23, 2024 5:05pm 130 mg/dL 70-99 [place] [id number] [address] [facility] [place] [address] Calculated Osmolality January 23, 2024 5:05pm 285 275-295 [id number] [address] [facility] [place] [address] Calcium Level January 23, 2024 5:05pm 8.5 mg/dL 8.5-10.1 [id number] [address] [facility] [place] [address] Troponin I High Sensitivity January 23, 2024 5:05pm 4.9 ng/L 0.00-49.9 | | FEMALE: | MALE: || Low Risk (Negative) | < 50 ng/L | < 80 ng/L | | Intermediate Risk | 50 - 110 ng/L | 80 - 110 ng/L | | High Risk (Critical)| >= 111 ng/L | >= 111 ng/L | | | [id number] [address] [facility] [place] [address] Aspartate Amino Transf (AST/SGOT) January 23, 2024 5:05pm 20 U/L 15-37 [place] [id number] [address] [place] [address] Alanine Aminotransfera se (ALT/SGPT) January 23, 2024 5:05pm 20 U/L 13-[id number] [facility] [place] [address] Alkaline Phosphatase January 23, 2024 5:05pm 63 U/L 45-117 [place] [id number] [facility] [place] [address] Total Bilirubin January 23, 2024 5:05pm 0.26 mg/dL 0.20-1.[id number] [facility] [place] [address] Total Protein January 23, 2024 5:05pm 6.9 g/dL 6.40-8.[id number] [place] [address] Albumin January 23, 2024 5:05pm 3.5 g/dL 3.4-5.[id number] [facility] [place] [address] Globulin January 23, 2024 5:05pm 3.4 Ratio 1.3-4.[id number] [facility] [address] Albumin/Globul in Ratio January 23, 2024 5:05pm 1.0 Ratio 1.2-2.3 [id number] 214 [facility] [address] Lipase January 23, 2024 5:05pm 29 U/L 13-75 [id number] [address] [facility] [address] Diagnostic Imaging Reports Report Dictated Date/Time Dictated By Status Magnetic Resonance Imaging Report January 23, 2024 4:47pm Edilma Kaiser MD completed [facility] [address] [facility] [place], [address] Diagnostic Imaging Signed Patient: Sirisha Veras : [...] Signed By: Edilma Kaiser MD Signed Date/Time:01/23/241654 Manager Document: [email or web address] Dictated Date: 01/23/241646 Transcribed Date/Time:01/23/241646 CC: Jackelyn Morales PA-C; Victoriano Flores DO ; Report Dictated Date/Time Dictated By Status Magnetic Resonance Imaging Report January 23, 2024 5:00 pm Jorge A Tong MD completed [address], [address] Diagnostic Imaging Signed Patient: Sirisha Veras : [...] By: Jorge A Tong MD Signed Date/Time:01/23/241701 Manager Document: [email or web address] Dictated Date: 01/23/241699 Transcribed Date/Time:01/23/241699 CC: [...] 8:26am Insurance Providers Guarantor Sirisha Veras Address [address] [facility] [place] [address] Contact Info. Home Phone: Payer Policy Id Coverage Id Subscriber's Name Subscriber Id Effective Date Expiration Date Aetna Medicare MCREP [id number] Sirisha Veras [id number] Humana Gold Medicare Advantage [id number] Sirisha Veras [id number] Humana [id number] Sirisha Veras [id number] Reg 1 Claims [id number] Best [place]ett [id number] Free Care [id number] Sirisha Veras [id number] Medicare [id number] Sirisha Veras [id number] Self Pay Self N/A Encounters Encounter Location(s) Arrival/Admit Date Discharge/Depart Date Provider(s) Discharged Recurring [facility]-Physical Therapy [place] January 08, 2024 11:00am January 25, 2024 3:30pm ROSALEE Romo Departed Emergency [facility]-Emergency Room January 23, 2024 4:45pm January [...] Provider Address Jackelyn Morales Work Phone: [address] [facility] [address] Future Procedures Future procedure information is unavailable Future Medications Future medication information is unavailable Patient Instructions [place] Diet Nausea and Vomiting, Adult (DC) Hospital [...]
--- OUTSIDE RECORDS SUMMARY | 2024-02-06 01:07 | External Medical Summary ---
Author Name Unknown Address Unknown Organization L1E:[facility] [address] [place] [address] Laboratory Report Ordering Provider Test Date Status Sandra Pastrana 01/23/2024 16:05 Final Observation Date Value Abnormality Reference (Units ) Status Sodium 01/23/2024 16:26 141 Normal 136-145 (mmol/L) Final Potassium [Moles/volume] in Specimen 01/23/2024 16:26 3.4 Below low normal 3.5-5.1 (mmol/L) Final Cl 01/23/2024 16:26 113 Above high normal 98-107 (mmol/L) Final CO2 01/23/2024 16:26 25 Normal 21-32 (mmol/L) Final Anion gap 01/23/2024 16:26 3.0 Normal 1.0-15.0 (MMOL/L) Final BUN 01/23/2024 16:26 19 Above high normal 7-18 (mg/dL) Final Creatinine 01/23/2024 16:26 0.80 Normal 0.55-1.02 (mg/dL) Final Glomerular filtration rate/1.73 sq M.predicted [Volume Rate/Area] in Serum, Plasma or Blood 01/23/2024 16:26 > 60 Final UNITS= mL/min/1.73m squared< br/> Unable to flag low results
Results less than 60 may warrant further investigation

Patients race is not known. If the patient is
Portuguese, multiply the calculated GFR result provided by
1.21. GFR Estimate should not be used to alter drug dosages. Urea nitrogen/Creatinine [Mass Ratio] in Serum or Plasma 01/23/2024 16:26 23.7 Above high normal 10.0-20.00 Final Glucose 01/23/2024 16:26 130 Above high normal 70-99 (mg/dL) Final Osmolality of Serum or Plasma by calculation 01/23/2024 16:26 285 Normal 275-295 Fi nal Calcium [Mass/volume] in Specimen 01/23/2024 16:26 8.5 Normal 8.5-10.1 (mg/dL) Final Aspartate Aminotrans(SGOT) 01/23/2024 16:26 20 Normal 15-37 (U/L) Final ALT (Alanine aminotransferase) 01/23/2024 16:26 20 Normal 13-56 (U/L) Final Alk Phos 01/23/2024 16:26 63 Normal 45-117 (U/L) Final Bilirubin,Total 01/23/2024 16:26 0.26 Normal 0.20-1. 00 (mg/dL) Final Total Protein 01/23/2024 16:26 6.9 Normal 6.40-8.20 (g/dL) Final Albumin 01/23/2024 16:26 3.5 Normal 3.4-5.0 (g/dL ) Final Globulin [Mass/volume] in Serum 01/23/2024 16:26 3.4 Normal 1.3-4.9 (Ratio) Final Albumin/Globulin [Mass Ratio] in Serum or Plasma 01/23/2024 16:26 1.0 Below low normal 1.2-2.3 (Ratio) Final Performing Location [facility] [address] [place] [address]
--- OUTSIDE RECORDS SUMMARY | 2024-02-06 01:07 | External Medical Summary | Continuity of Care Document ---
Author Name Unknown Organization [facility] Address [address] [facility] [place] [address] Phone [phone] Care Team Providers Care Swimming Pool Plasterer Helper Name Role Phone Pa Rae DO Care Team Information Reverberatory Skimmer [phone] Jackelyn Morales PA-C Care Team Information Receiv er [phone] Mega Mendoza DO Care Team Information Rec eiver [phone] LOKESH LEROY DO Care Team Information Reverberatory Skimmer [phone] Jackelyn Morales PA-C Primary Care Physician Problems Active Problems Provider Date Increased frequency of urination Cassie lemus PA-C Onset: 08/18/2022 Diplopia Cassie Meier PA-C Onset: Hypoglycemia Lokesh Leroy DO Onset: 024 Social History Type Date Description Comments Sex Unknown ETOH Use 01/18/2024 Rarely consumes alcohol Tobacco Use Reviewed: 01/18/24 Patient has never smok ed Recreational Drug Use 01/18/2024 Denies Drug Use Smoking Status Reviewed: 01/18/24 Patient has never sm oked Allergies and adverse reactions Active Allergies Criticality Reaction | Severity Comments Date Azithromycin Unable to assess criticality severe abdominal pain 12/18/2021 Sulfa (Sulfonamide Antibiotics) Unable to assess criticality Skin Rash 12/18/2021 Medications Active Medications SIG Qnty Indications Order ing Provider Date Meclizine VFA97qs Tablets 1 tab by mouth three times a day as needed 30tabs R42 Pa Rae DO 12/04/2023 Onetouch Ultra 2w/Device Kit use daily DX E16.2 1units Pa Rae, DO 11/23/2023 Onetouch UltraStrips Test Blood Sugar Every Day as Needed E16.2 100units Pa Rae, DO 11/23/2023 Onetouch Ultra Control SolutionLiquid as directed daily or as needed DX E11.9...this is a new script 3units Pa Rae, DO 11/23/2023 Levothyroxine Ouevch668atj Tablets Take 1 Tablet by mouth Every Day 90tabs PERICO Lazcano 09/14/2023 QC Tumeric Ultnlin493uw Capsules 2 caps by mouth bid PERICO Lazcano 07/17/2023 Dropsafe Alcohol Prep70% Pads Use Once Daily as Needed 100units Pa Rae, DO 07/07/2022 Trueplus Lancets 33G33G Misc Test Blood Sugar Every Day 100units Pa Rae DO 02/11/2022 Alcohol SwabsPads use once daily prn 100units Jackelyn Morales PA-C 02/11/2022 Sumatriptan Sctpdtnop833to Tablets Take 1 Tablet Every 2 Hours as Needed For Migraine Headache. DO Not Exceed 2 Doses Per 24 Hours 27tabs Pa Rae, DO 09/25/2021 Levocetirizine Mexjmbcgxnlobhh1xs Tablets Take 1 Tablet Every Day 90tabs Pa Rae, DO 08/28/2021 Metoprolol Succinate ER25mg Tablets ER 24HR Take 1 Tablet Every Day 90tabs Pa Rae DO 08/16/2021 Kvkiesrf510pn/ml Solution Auto-Inject every month Unknown 021 Flecainide Jkwnyyp822ss Tablets PO patient states 50mg bid; Unknown 07/23/2021 Jefvxqb7rf Tablets Twice Daily 60tabs Unknown 06/20/[address] Daily Unknown 06/20/2021 Ondansetron HCL8mg Tablets 2 to 3 times per day Unknown 05/24/2021 Azelastine HCL (Nasal)0.1% Solution Twice Daily 30ml Unknown [address] Take 1 Tablet Twice Daily 180tabs Pa Rae, DO Oxybutynin Ohlbtjxm5qw Tablets 1 tab by mouth twice a day Unknown Amitriptyline FON89kn Tablets 1 tab by mouth every day at bedtime Unknown Losartan Iquzvncrz78fa Tablets Take 2 Tablet By Mouth Every Day Jose J Rodriguez Vitamin D3 Maximum Klxceipu730nof (5000 Ut) Capsules 1 by mouth every day Unknown History Medications Amoxicillin/Clavulanate Gcuzrbemh002-031go Tablets 1 tab by mouth twice a day for 7 days 14tabs U07.1 Lokesh Leroy, DO 10/19/2023 - 11/02/2023 Bwemfeul797tc Tablets 1 tab by mouth once 1tabs U07.1 Lokesh Bianka Bojorquezsh, DO 10/19/2023 - 11/02/2023 Levothyroxine Gggmcr04dsw Capsules take 1 25 mcg tablet with the 125 mcg for a total of 150 mcg a day. take tablets early am 90caps PERICO Lazcano 09/14/2023 - 09/14/2023 Levothyroxine Mlzwpo487flw Tablets Take 1 Tablet by mouth Every Day 90tabs PERICO Lazcano 08/28/2023 - 09/14/2023 Medications Administered in Office Medication SIG Qnty Indications Ordering Provider Date Injection Betamethasone Acet ate & Sodium Phosphate 3 MG Of EachInjection Migdalia Killian PA-C 11/02/20 Injection Betamethasone Acet ate & Sodium Phosphate 3 MG Of EachInjection Migdalia Killian PA-C 03/04/20 23 Vital Signs Date Vital Result Comment 01/18/2024 9:35am Height 66 inches 5'6" Weight 158.50 lb Weight 71.896 kg BMI (Body Mass Index) 25.6 kg/m2 BP Systolic 142 mmHg BP Diastolic 78 mmHg Body Temperature 97.4 F Heart Rate 65 /min Respiratory Rate 20 /min O2 % BldC Oximetry 100 % 12/04/2023 1:59pm Height 66 inches 5'6" Weight 156.31 lb Weight 70.903 kg BMI (Body Mass Index) 25.2 kg/m2 BP Systolic 148 mmHg BP Diastolic 80 mmHg Body Temperature 96.6 F Heart Rate 83 /min Respiratory Rate 20 /min O2 % BldC Oximetry 95 % Results Test Acquired Date Facility Test Result H/L Range N ote CBC W/ Auto Diff 12/04/[address] [id number] [phone] White Blood Count 5.9 10^3/uL Normal 4.1-10.2 Red Blood Count 4.34 10^6/uL Normal 3.80-5.20 Hemoglobin 12.7 g/dL Normal 11.5-15.5 Hematocrit 38.7 % Normal 35-46 Mean Corpuscular Volume 89.2 fL Normal 82.0-98.0 Mean Corpuscular Hemoglobin 29.3 pg Normal 27.0-34. 0 Mean Corpuscular Hgb Conc 32.8 g/dL Normal 31.0-36.0 RDW-SD 42.4 fL Normal 37-49 RDW-CV 13.0 % Normal 11.8-14.8 Platelet Count 252 10^3/uL Normal 150-360 Mean Platelet Volume 9.8 fL Normal 9.4-12.3 Neutrophils %(Auto) 44.3 % Normal 42-75 Lymphocytes % (Auto) 45.3 % High 14-42 Monocytes % (Auto) 7.3 % Normal 4-13 Eosinophils % (Auto) 2.2 % Normal 0-6 Basophils % (Auto) 0.7 % Normal 0-2 Immature Granulocytes % (Auto) 0.2 % Normal 0.0-0 .7 NRBC% (Auto) 0.0 /100WBC Normal 0.0-0.2 Neutrophils # (Auto) 2.6 103uL Normal 1.8-6.6 Lymphocytes # (Auto) 2.7 10^3/uL Normal 1.0-3.1 Monocytes # (Auto) 0.4 103uL Normal 0.0-1.0 Eosinophils # (Auto) 0.1 103uL Normal 0.0-0.5 Basophils # (Auto) 0.0 10^3/uL Normal 0.0-0.1 Immature Granulocytes # (Auto) 0.0 10^3/uL Normal 0.0- 0.0 NRBC # (Auto) 0.000 10^3/uL Normal 0.000-0.012 Comprehensive Metabolic Panel 12/04/[address] [phone] Sodium 140 mmol/L Normal 136-145 Potassium 3.5 mmol/L Normal 3.5-5.1 Chloride 107 mmol/L Normal 98-107 Carbon Dioxide 31 mmol/L Normal 21-32 Fcmc Anion Gap 2.0 mmol/L Normal 1.0-15.0 Blood Urea Nitrogen 23 mg/dL High 7-18 Creatinine,Serum 0.90 mg/dL Normal 0.55-1.02 GFR > 60 1 BUN/Creatinine Ratio 25.6 High 10.0-20.00 Glucose 95 mg/dL Normal 70-99 Osmolality,Calculated 282 Normal 275-295 Calcium 9.1 mg/dL Normal 8.5-10.1 Aspartate Aminotrans(Sgot) 12 U/L Low 15-37 Alanine Aminotran (SGPT) 22 U/L Normal 13-56 Alkaline Phosphatase 60 U/L Normal 45-117 Bilirubin,Total 0.59 mg/dL Normal 0.20-1.00 Total Protein 7.3 g/dL Normal 6.40-8.20 Albumin 3.9 g/dL Normal 3.4-5.0 Globulin 3.4 Ratio Normal 1.3-4.9 Albumin/Globulin Ratio 1.1 Ratio Low 1.2-2.3 Lipid Panel 08/07/2023 [facility]) [address] [place] [phone] Chol 221 mg/dL High 20-200 2 LDL calc. 129.80 mg/dL <=100 3 Trig 81 mg/dL Normal 20-200 HDL 75.0 mg/dL High 35.0-60.0 HDL Risk Factor 2.95 Low 3.27-4.44 CBC W/ Auto Diff 08/07/2023 [facility]) [address] [place] [address] [phone] WBC 7.4 x10(3)/mcL Normal 4.8-11.0 RBC 4.33 x10(6)/mcL Normal 4.20-5.40 Hgb 12.7 gm/dL Normal 12.0-16.0 Hct 40.6 % Normal 37.0-47.0 MCV 93.8 fL Normal 80.0-100.0 MCH 29.3 pg Normal 28.0-34.0 MCHC 31.3 gm/dL Low 32.0-36.0 RDW-CV 13.2 % Normal 11.8-14.2 Plt Count 284 x10(3)/mcL Normal 150-380 MPV 10.5 fL Normal 8.4-10.8 Differential? Auto Diff Perf Normal Comprehensive Metabolic Panel 08/07/2023 [facility]) [address] [place] [address] [phone] Glucose Lvl 87 mg/dL Normal 65-110 BUN 25.0 mg/dL High 5.0-23.0 Creatinine 0.80 mg/dL Normal 0.40-1.50 Total Protein 6.6 gm/dL Normal 6.4-8.3 Albumin Lvl 3.7 gm/dL Normal 3.4-5.0 Globulin Lvl 2.9 gm/dL Normal 1.7-4.5 A/G Ratio. 1.3 Normal 1.0-2.5 Calcium 8.9 mg/dL Normal 8.7-10.5 Bili Total 0.4 mg/dL Normal 0.0-1.5 Sodium 142 mmol/L Normal 135-145 Potassium 3.6 mmol/L Normal 3.6-5.0 Chloride 108 mmol/L Normal 98-108 Co2 30.0 mmol/L Normal 23.0-32.0 Agap 7.6 Low 8.0-15.0 Alk Phos 55 IU/L Normal 45-117 Ast 12 IU/L Low 15-37 Alt 24 IU/L Normal 12-78 Glyco Panel 08/07/2023 [facility]) [address] [place] [address] [phone] Hgb A1c 5.4 % Normal 3.8-5.6 4 MPG 114.9 mg/dL 5 A1c CPT II Code 3044F <7% .Automated Differential 08/07/2023 [facility]) [address] [place] [phone] [phone] Neut Pct Auto 49.1 % Low 50.0-70.0 Lymph Pct Auto 40.5 % High 20.0-40.0 [place] Pct Auto 7.9 % Normal 0.0-8.0 Eos Pct Auto 1.9 % Normal 0.0-5.0 Baso Pct Auto 0.5 % Normal 0.0-2.0 Ig Pct Auto 0.1 % Normal <=0.7 Neut Abs Auto 3.65 x10(3)/mcL Normal 1.80-7.50 Lymph Abs Auto 3.02 x10(3)/mcL Normal 1.50-3.50 [place] Abs Auto 0.59 x10(3)/mcL Normal 0.00-0.80 Eos Abs Auto 0.14 x10(3)/mcL Normal 0.00-0.70 Baso Abs Auto 0.04 x10(3)/mcL Normal 0.00-0.10 Ig Abs Auto 0.01 x10(3)/mcL Normal <=0.04 NRBC % Auto 0 /100WBC NRBC Abs Auto 0.00 x10(3)/mcL Laboratory test finding 08/07/2023 [facility]) [address] [place] [address] [phone] TSH 5.420 mcIU/mL High 0.410-4.670 6 Free T4 1.03 ng/dL Normal 0.71-1.85 7 .Glomerular Filtration Rate 08/07/2023 [facility]) [address] [place] [address] [phone] eGFR CKD-Epi 82 mL/min/1.73m2 Normal >=60 1 UNITS= mL/min/1.73m squared Unable to flag low results Results less than 60 may warrant further investigation Patients race is not known. If the patient is , multiply the calculated GFR result provided by 1.21. GFR Estimate should not be used to alter drug dosages. 2 <200 Iuwetqqww071-06 9 Borderline High>240 High 3 <100 Ueaszhv335-939 Near Lahoxwr881-679 Borderline Xohk380-894 High>=190 Very High 4 Hemoglobing A1C Guid e<5.7% Normal5.7% 6.4% Borderline>=6.5% Diabetes 5 The Mean Plasma Gluc ose (MPG) is an estimated result based on the patient's Hemoglobin A1c. REF: Diabetes Care, 2002, Vol.25,275-278. 6 Patient samples may contain human heterophilic antibodies that could react with immunoassays to give falsely elevated or depressed results. 7 Patient samples may contain human heterophilic antibodies that could react with immunoassays to give falsely elevated or depressed results. Procedures Date Code Description Status 01/18/2024 3008F Body Mass Index (BMI), Docum ented (pv) Completed 12/04/2023 3079F Most Recent Diastolic BP 80- 90mm HG Completed 12/04/2023 3077F Most Recent Systolic BP >/=1 40mm HG Completed 12/04/2023 3008F Body Mass Index (BMI), Docum ented (pv) Completed 11/02/2023 J0702 Injection Betame thasone Acetate & Sodium Phosphate 3 MG Of Each Completed 11/02/2023 46766 Inject/Drain Art hrocentesis Major Joint/Bursa/Ganglion Cyst Completed 10/19/2023 3008F Body Mass Index (BMI), Docum ented (pv) Completed Medical Devices Description No Information Available Encounters Type Date Location Provider Dx Diagnosis Office Visit 01/18/2024 9:30a [facility] Jackelyn Morales PA-C Z01.818 Encounter for other preprocedural examination I48.0 Paroxysmal atrial fi brillation Z68.25 Body mass index [BMI ] 25.0-25.9, adult Office Visit 12/04/2023 2:00p [facility] Jackelyn Morales PA-C I10 Essential (primary) hypertension E16.1 Other hypoglycemia R22.42 Localized swelling, mass and lump, left lower limb R42 Dizziness and giddin ess Z68.25 Body mass index [BMI ] 25.0-25.9, adult Office Visit 11/02/2023 9:30a [facility] Migdalia Killian PA-C M47.27 Other spondylosis with radiculopathy, lumbosacral region M51.37 Other intervertebral disc degeneration, lumbosacral region M48.07 Spinal stenosis, lum bosacral region Z98.1 Arthrodesis status M25.511 Pain in right should er M25.611 Stiffness of right s houlder, not elsewhere classified Office Visit 10/19/2023 1:45p [facility] Lokesh Leroy, U07.1 Covid-19 Z68.23 Body mass index [BMI ] 23.0-23.9, adult Assessments Date Code Description Provider 01/18/2024 Z01.818 Encounter for other preproce dural examination Jackelyn Morales PA-C 01/18/2024 I48.0 Paroxysmal atrial fibrillati on Jackelyn Morales PA-C 01/18/2024 Z68.25 Body mass index [BMI] 25.0-2 5.9, adult Jackelyn Morales PA-C 12/04/2023 I10 Essential hypertension Jackelyn Morales PA-C 12/04/2023 E16.1 Reactive hypoglycemia Jackelyn Morales PA-C 12/04/2023 R22.42 Localized swelling of left l ower leg Jackelyn Morales PA-C 12/04/2023 R42 Vertigo Jackelyn Morales PA-C 12/04/2023 Z68.25 Body mass index [BMI] 25.0-2 5.9, adult Jackelyn Morales PA-C 11/02/2023 M47.27 Other spondylosi s with radiculopathy, lumbosacral region Migdalia Killian PA-C 11/02/2023 M51.37 Other interverte bral disc degeneration, lumbosacral region Migdalia Killian PA-C 11/02/2023 M48.07 Spinal stenosis, lumbosacral region Migdalia Killian PA-C 11/02/2023 Z98.1 Arthrodesis status Migdalia Moses PA-C 11/02/2023 M25.511 Pain in right shoulder Migdalia Killian PA-C 11/02/2023 M25.611 Stiffness of rig ht shoulder, not elsewhere classified Migdalia Killian PA-C 10/19/2023 U07.1 Covid-19 Lokesh Leroy, 10/19/2023 Z68.23 Body mass index [BMI] 23.0-2 3.9, adult Lokesh Leroy, DO Plan of Treatment 01/18/2024 - Jackelyn Morales PA-C* Z01.818 Encounter for other preprocedural examination* Recommendations:* Patient had EKG, and labs. Recently saw cardiology and was cleared to proceed with surgery. She will hold her eliquis for 5 days prior to surgery. She should be considered low risk for complications and is medically cleared to proceed. * I48.0 Paroxysmal atrial fibrillation* Recommendations:* Currently NSR. Doing well with flecainide, eliquis and metoprolol * Z68.25 Body mass index [BMI] 25.0-25.9, adult* Comments:* Above Normal BMI, Diet counseling performed. Helpful resource: www.myplate.gov Exercise c brad performed. Helpful resource: www.nutrition.gov/topics/yqglksvx-eiu-lvjwauq Functional Status Description No Information Available Mental Status Description No Information Available Referrals Refer to Dr Reason for Referral Status Appt Jordan preethi METCALF [place] [facility] GI Dr lexy Drake in [place], [place] [phone] for hx of cancer polys and hernia and hx of family colon cancer Scheduled 04/28/2024 [facility], Dr Padron, [facility] Closed 11/17/2023
--- OUTSIDE RECORDS SUMMARY | 2024-02-06 01:07 | External Medical Summary ---
Author Name Unknown Address Unknown Organization L1E:[facility] [address] [place] [address] Laboratory Report Ordering Provider Test Date Status Sandra Pastrana 01/23/2024 16:18 Final Observation Date Value Abnormality Reference (Units) Status Color, Urine 01/23/2024 16:22 Yellow Yellow Final Clarity, Urine 01/23/2024 16:22 Clear Clear Final pH, Urine 01/23/2024 16:22 5.5 Below low normal 6.0-8.0 Final Specific gravity of Urine by Automated test strip 01/23/2024 16:22 1.025 Normal 1.000-1.030 Final Protein [Presence] in Urine 01/23/2024 16:22 Negative Negative Final Glucose [Presence] in Urine 01/23/2024 16:22 Negative Negative Final Ketones [Mass/volume] in Urine by Automated test strip 01/23/2024 16:22 Negative Negative Final Blood,Urine 01/23/2024 16:22 Trace-Intact Negative Final Nitrate [Mass/volume] in Urine 01/23/2024 16:22 Negative Negative Final Bilirubin, Urine 01/23/2024 16:22 Negative Negative Final Urobilinogen [Presence] in Urine by Automated test strip 01/23/2024 16:22 1.0 0.2-1.0 Final Leukocyte esterase [Presence] in Urine by Automated test strip 01/23/2024 16:22 Negative Negative Final Erythrocytes [#/volume] in Urine sediment by Microscopy high power field 01/23/2024 16:34 0-3 0-3 (/HPF) Final Bacteria identified in Urine by Culture 01/23/2024 16:34 NO Final Culture not indicated. Amorphous sediment [Presence ] in Urine sediment by Light microscopy 01/23/2024 16:35 RARE (/HPF) Kerrie alexandra Performing Location [facility] [address] [place] [address]
--- OUTSIDE RECORDS SUMMARY | 2024-02-06 01:07 | External Medical Summary ---
Author Name Unknown Address Unknown Organization L1E:[facility] [address] [place] [address] Laboratory Report Ordering Provider Test Date Status Sandra Pastrana 01/23/2024 16:05 Final Observation Date Value Abnormality Reference (Units ) Status Troponin I 01/23/2024 16:26 4.9 Normal 0.00-49.9 (n g/L) Final
FEMALE: MALE:
Low Risk (Negative) < 50 ng/L < 80 ng/L
Intermediate Risk 50 - 110 ng/L 80 - 110 ng/L
High Risk (Critical) >= 111 ng/L >= 111 ng/L
Performing Location [facility] [address] [place] [address]
--- OUTSIDE RECORDS SUMMARY | 2024-02-06 01:07 | External Medical Summary | Continuity of Care Document ---
Author Name Unknown Address [address] [place] [address] Phone Organization [facility] Address [address] [place] [address] Phone Support Name Relationship Address Phone Jackelyn Morales Primary Care Provider [address] [place] [address] Clarence Romo Attending Provider [address] [place] [address] Victoriano Flores Emergency Provider [address] [place] [address] Chief Complaint and Reason for Visit Chief Complaint Lumbar Radiculopathy nausea Allergies, Adverse Reactions, Alerts Allergen Type Severity Reaction Last Updated Verified Status azithromycin Allergy Unknown severe abdomina l pain January 23, 2024 3:56pm Yes Active Sulfa (Sulfonamide Antibiotics) Allergy Unknown Skin Rash January 23, 2024 3:56pm Yes Active Social History Smoking Status Status Start Date End Date Date of Observa tion Never smoked tobacco (finding) January 23, 2024 3:56pm Observation Status Observation Response Date of Response Lives Alone November 25 1:42pm Smokeless Tobacco Use None June 2:58pm Current Tobacco Use None January 22 024 3:56pm Additional Data Assigned Sex Female Family History [...] 125 MCG PO daily January 19, 2020 12:00am Novemb er 2019 7:22am Ibuprofen (Motrin) 800 mg tablet Disconti nued 800 MG PO QID January 19, 2020 6:43am March 01, 2020 6:31am Levocetirizin e Dihydrochlori de Disconti nued 5 MG PO daily January 19, 2020 12:00am Februa 2020 11:52a m Cefuroxime Axetil (Ceftin) 500 mg tablet Disconti nued 500 MG PO Twice Daily 29 05February 21, 2020 11:00pm February 28, 2020 11:01p m Fluconazole Disconti nued 150 MG PO Once February 21, 2020 11:00pm March 26, 2020 2:24pm Ibuprofen (Motrin) 800 mg tablet Disconti nued 800 MG PO QID March 01, 2020 6:31am April 16, 2020 5:57am Losartan Potassium (Cozaar) 50 mg tablet Disconti nued 50 MG PO daily March 14, 2020 11:00pm 2019 10:06a m Fluconazole Disconti nued 150 MG PO Once March 26, 2020 2:22pm 2019 7:50am Amoxicillin/P otassium Clav (Augmentin 875-125 Mg Tab) 875-125 mg tablet Disconti nued 1 TAB PO Twice Daily March 25, 2020 11:00pm 2019 7:49am Prednisone Disconti nued 0 PO per package directions March 25, 2020 11:00pm 2019 8:59am PO PER PKG DIR Ibuprofen (Motrin) 800 mg tablet Disconti nued 800 MG PO QID April 16, 2020 5:57am Februa 2020 11:52a m Amoxicillin/P otassium Clav (Augmentin 875-125 Mg Tab) 875-125 mg tablet Disconti nued 1 TAB PO Twice Daily April 15, 2020 11:00pm Sept2019 7:50am Ondansetron (Ondansetron Odt) 4 mg tablet,disint egrating Disconti nued 4 MG PO Twice Daily April 29, 2020 11:00pm Septem 2019 9:01am Amoxicillin/P otassium Clav (Augmentin 875-125 Mg Tab) 875-125 mg tablet Disconti nued 1 TAB PO Twice Daily 20 May 09, 2020 11:00pm May 19, 2020 11:01p m Ropinirole Hcl Disconti nued 1 MG PO Every Night July 15, 2020 11:00pm May 24, 2021 7:42am administer 1-3 hours before bedtime DUE FOR APPOINTMENT Sumatriptan Succinate Disconti nued 100 MG PO Q2H 10 0 2019 11:00pm Octobe r 2019 12:28p m do not exceed 2 doses per 24 hrs Sumatriptan Succinate Disconti nued 100 MG PO Q2H 10 0 August 24, 2020 12:28pm Octobe r 2019 2:53pm do not exceed 2 doses per 24 hrs Tramadol Hcl Disconti nued 50 MG PO daily 3 3 August 30, 2020 11:00pm Octobe r 2019 11:01p m Sumatriptan Succinate Disconti nued 100 MG PO Q2H 36 August 31, 2020 2:49pm Novua2020 12:02a m do not exceed 2 doses per 24 hrs Levothyroxine Sodium Disconti nued 125 MCG PO daily 2019 7:22am June 14, 2021 6:52am Losartan Potassium (Cozaar) 100 mg tablet Disconti nued 0 .ROUTE .COMPLEX r 2019 7:19am Februa ry 2020 8:19am TAKE 1 TABLET EVERY DAY Levocetirizin e Dihydrochlori de Disconti nued 5 MG PO daily y 2020 11:52am June 14, 2021 6:52am Ibuprofen (Motrin) 800 mg tablet Disconti nued 800 MG PO QID 2020 11:52am June 20, 2021 9:58am Losartan Potassium (Cozaar) 100 mg tablet Disconti nued 0 .ROUTE .COMPLEX y 2020 8:19am June 14, 2021 6:52am TAKE 1 TABLET EVERY DAY Amoxicillin/P otassium Clav (Augmentin 875-125 Mg Tab) 875-125 mg tablet Disconti nued 1 TAB PO Twice Daily January 22, 2021 12:00am April 26, 2021 1:51pm Sumatriptan Succinate Disconti nued 100 MG PO Q2H 36 February 25, 2021 7:19am May 24, 2021 8:20am do not exceed 2 doses per 24 hrs Amoxicillin/P otassium Clav (Augmentin 875-125 Mg Tab) 875-125 mg tablet Disconti nued 1 TAB PO Twice Daily May 15, 2021 11:00pm May 24, 2021 8:24am Fluconazole Disconti nued 150 MG PO Every 3 Days 2 May 20, 2021 11:00pm May 24, 2021 7:41am Fluconazole Disconti nued 150 MG PO Once 1 May 30, 2021 11:00pm June 20, 2021 9:57am as a single dose Levothyroxine Sodium (Synthroid) 125 mcg tablet Disconti nued 125 MCG PO daily June 14, 2021 6:52am June 20, 2021 9:58am Levocetirizin e Dihydrochlori de Disconti nued 5 MG PO daily June 14, 2021 6:52am Octobe r 2020 8:20am Losartan Potassium (Cozaar) 100 mg tablet Disconti nued 0 .ROUTE .COMPLEX June 14, 2021 6:52am June 17, 2021 3:37pm TAKE 1 TABLET EVERY DAY Sumatriptan Succinate Disconti nued 100 MG PO Q2H 36 July 11, 2021 9:59am Novemb er 2020 3:17pm do not exceed 2 doses per 24 hrs Levothyroxine Sodium Disconti nued 88 MCG PO 0600 30 Septemb er 2020 9:16am Novemb er 2020 11:35a m Levocetirizin e Dihydrochlori de Active 5 MG PO daily August 28, 2021 8:20am Tramadol Hcl Disconti nued 50 MG PO Twice Daily 08 20August 28, 2021 8:21am Octobe r 2020 12:08p m Tramadol Hcl Disconti nued 50 MG PO Twice Daily 08 20August 28, 2021 12:08pm Octobe r 2020 11:08p m Levothyroxine Sodium Active 88 MCG PO 0600 30 Novembe r 2020 11:35am Sumatriptan Succinate Active 100 MG PO Q2H 36 Novembe r 2020 3:17pm do not exceed 2 doses per 24 hrs Clindamycin Hcl Active 300 MG PO QID 40 Dece r 2020 12:39pm Ibuprofen (Motrin) 800 MG tablet Disconti nued 800 MG PO TID August 25, 2018 7:39pm January 19, 2020 6:44am Losartan Potassium (Cozaar) 100 MG tablet Disconti nued 0 .Route Daily June 17, 2021 3:37pm June 20, 2021 9:57am TAKE 1 TABLET EVERY DAY Amiodarone Hcl (Cordarone) 200 MG tablet Disconti nued 200 MG PO Twice Daily 60 June 19, 2021 11:00pm Septem bharat 2020 10:53a m 200 mg twice daily for 14 days, then decrease to 200 mg once daily Apixaban (Eliquis) 5 MG tablet Active 5 MG PO Twice Daily June 19, 2021 11:00pm Aspirin (Ecotrin) 81 MG tablet,delaye d release (DR/EC) Active 81 MG PO Daily June 19, 2021 11:00pm Clindamycin Hcl (Cleocin) 150 MG capsule Disconti nued 150 MG PO Q8H June 19, 2021 11:00pm Septem bharat 2020 10:53a m Levothyroxine Sodium (Synthroid) 88 MCG tablet Disconti nued 88 MCG PO 0600 June 19, 2021 11:00pm 2020 9:16am Polyethylene Glycol 3350 (Miralax) 17 GM powder in packet Active 17 GM PO Daily June 19, 2021 11:00pm Potassium Chloride (Klor-Con) 10 MEQ tablet,ER particles/cry stals Active 20 MEQ PO Daily June 19, 2021 11:00pm Gi Cocktail Active 40 ML PO Before Meals & Bed 400 2020 1:11am Metoclopramid e Hcl (Reglan) 10 MG tablet Active 10 MG PO QID 30 er 2020 1:11am Famotidine (Pepcid) 20 MG tablet Disconti nued 20 MG PO Twice Daily 60 2020 11:00pm January 23, 2024 5:31pm Sucralfate (Carafate) 1 GM tablet Active 1 GM PO QID January 29, 2022 11:00pm Sucralfate (Carafate) 1 GM tablet Active 1 GM PO QID January 29, 2022 11:00pm Dicyclomine Hcl (Bentyl) 10 MG capsule Active 10 MG PO Q6H 30 January 23, 2024 12:00am Metoclopramid e Hcl Active 10 MG PO TID 21 January 23, 2024 5:31pm Famotidine (Pepcid) 20 MG tablet Active 20 MG PO Twice Daily 60 January 23, 2024 5:31pm Pantoprazole Sodium (Protonix) 40 mg tablet,delaye d release (DR/EC) Active 40 MG PO Every Morning 30 er 2019 11:00pm Ondansetron (Ondansetron Odt) 8 mg tablet,disint egrating Disconti nued 8 MG PO QID 120 1 er 2019 11:00pm Septem bharat 2019 11:02p m Losartan Potassium (Cozaar) 100 mg tablet Disconti nued 100 MG PO daily 30 2019 10:05am [facility] er 2019 7:19am Azelastine Hcl Active 2 SPRAY intrana luis m Twice Daily r 2019 12:00am Kasie Root/Pyridoxi ne Hcl(B6) (Vicectin 25-325 Mg Capsule) 325-25 mg capsule Disconti nued CAP PO January 25, 2021 12:00am May 24, 2021 7:41am Tramadol Hcl Disconti nued 50 MG PO Twice Daily 10 5 January 25, 2021 12:00am January 29, 2021 11:02p m Verapamil Hcl (Verapamil Er) 120 mg capsule,ext rel. pellets 24 hr Disconti nued 120 MG PO Daily April 25, 2021 11:00pm June 20, 2021 9:58am Prednisone Disconti nued 0 PO per package directions April 25, 2021 11:00pm April 26, 2021 2:22pm PO PER PKG DIR Prednisone Disconti nued 0 PO per package directions April 26, 2021 2:21pm April 26, 2021 2:39pm PO PER PKG DIR Prednisone Disconti nued 0 PO per package directions April 26, 2021 2:39pm May 24, 2021 7:42am PO PER PKG DIR Saccharomyces Boulardii Active 250 MG PO daily May 23, 2021 11:00pm Ondansetron Hcl Active 8 MG PO 2 to 3 times per day May 23, 2021 11:00pm Sumatriptan Succinate Disconti nued 100 MG PO Q2H 36 90 May 24, 2021 8:19am June 17, 2021 3:37pm do not exceed 2 doses per 24 hrs Clindamycin Hcl Disconti nued 150 MG PO TID 30 10 May 23, 2021 11:00pm June 02, 2021 11:03p m Flecainide Acetate Active 0 PO .COMPLEX Septemb er 2020 11:00pm PO patient states 50mg bid; Galcanezumab- Gnlm (Emgality Pen) 120 mg/mL pen injector Active 120 MG SUBCUT every month [facility] er 2020 11:00pm Metoprolol Succinate (Toprol Xl) 25 mg tablet extended release 24 hr Active 25 MG PO daily [facility] [place] 2020 11:00pm Clindamycin Hcl Disconti nued 300 MG PO QID [facility] 2020 11:00pm [facility] er 2020 12:40p m Fluconazole Active 100 MG PO daily 7 Jayde win er 2020 11:00pm Procedures Procedure Date Performed Status Abdomen & Pelvis WO Cont January 23, 2024 4:22pm completed Lumbar Spine WO Cont January 23, 2024 4:22pm comp leted Relevant Diagnostic Tests and/or Laboratory Data Laboratory Results Test Date/Time Result Interpretation Reference Range Result Comment Performing Site White Blood Count January 23, 2024 4:05pm 4.1 10^3/uL 4.1-10.2 [facility] [id number] [address] [place] [address] Red Blood Count January 23, 2024 4:05pm 4.42 10^6/uL 3.80-5.20 [facility] [id number] [address] [place] [address] Hemoglobin January 23, 2024 4:05pm 12.7 g/dL 11.5-15.5 [facility] [id number] [address] [place] [address] Hematocrit January 23, 2024 4:05pm 38.7 % 35-46 [facility] [id number] [address] [place] [address] Mean Corpuscular Volume January 23, 2024 4:05pm 87.6 fL 82.0-98.0 [facility] [id number] [address] [facility] [place] [address] Mean Corpuscular Hemoglobin January 23, 2024 4:05pm 28.7 pg 27.0-34.0 [facility] [id number] [address] [facility] [place] [address] Mean Corpuscular Hemoglobin Concent January 23, 2024 4:05pm 32.8 g/dL 31.0-36.0 [facility] [id number] [address] [place] [address] RDW Standard Deviation January 23, 2024 4:05pm 40.0 fL 37-49 [facility] [id number] [address] [facility] [place] [address] RDW Coefficient of Variation January 23, 2024 4:05pm 12.5 % 11.8-14.8 [facility] [id number] [address] [facility] [place] [address] Platelet Count January 23, 2024 4:05pm 221 10^3/uL 150-360 [facility] [id number] [address] [facility] [place] [address] Mean Platelet Volume January 23, 2024 4:05pm 9.2 fL 9.4-12.3 [facility] [id number] [address] [facility] [place] [address] Neutrophils (%) (Auto) January 23, 2024 4:05pm 53.4 % 42-75 [facility] [id number] [address] [facility] [place] [address] Lymphocytes (%) (Auto) January 23, 2024 4:05pm 33.6 % 14-42 [facility] [id number] [address] [facility] [place] [address] Monocytes (%) (Auto) January 23, 2024 4:05pm 10.6 % 4-13 [facility] [id number] [address] [facility] [place] [address] Eosinophils (%) (Auto) January 23, 2024 4:05pm 1.7 % 0-6 [facility] [id number] [address] [facility] [place] [address] Basophils (%) (Auto) January 23, 2024 4:05pm 0.5 % 0-2 [facility] [id number] [address] [facility] [place] [address] Immature Granulocytes % January 23, 2024 4:05pm 0.2 % 0.0-0.7 [facility] [id number] [address] [facility] [place] [address] Neutrophils # (Auto) January 23, 2024 4:05pm 2.2 10^3uL 1.8-6.6 [facility] [id number] [address] [facility] [place] [address] Lymphocytes # (Auto) January 23, 2024 4:05pm 1.4 10^3/uL 1.0-3.1 [facility] [id number] [address] [place] [address] Monocytes # (Auto) January 23, 2024 4:05pm 0.4 10^3uL 0.0-1.0 [facility] [id number] [address] [place] [address] Eosinophils # (Auto) January 23, 2024 4:05pm 0.1 10^3uL 0.0-0.5 [facility] [id number] [address] [place] [address] Basophils # (Auto) January 23, 2024 4:05pm 0.0 10^3/uL 0.0-0.1 [facility] [id number] [address] [place] [address] Urine Color January 23, 2024 4:18pm Yellow Yellow [facility] [id number] [address] [place] [address] Urine Clarity January 23, 2024 4:18pm Clear Clear [facility] [id number] [address] [place] [address] Urine pH January 23, 2024 4:18pm 5.5 6.0-8.0 [facility] [id number] [address] [place] [address] Urine Specific [place] January 23, 2024 4:18pm 1.025 1.000-1.03 0 [facility] [id number] [address] [place] [address] Urine Protein January 23, 2024 4:18pm Negative Negative [facility] [id number] [address] [place] [address] Urine Glucose (UA) January 23, 2024 4:18pm Negative Negative [facility] [id number] [address] [place] [address] Urine Ketones January 23, 2024 4:18pm Negative Negative [facility] [id number] [address] [place] [address] Urine Occult Blood January 23, 2024 4:18pm Trace-int act Negative [facility] [id number] [address] [place] [address] Urine Nitrate January 23, 2024 4:18pm Negative Negative [facility] [id number] [address] [place] [address] Urine Bilirubin January 23, 2024 4:18pm Negative Negative [facility] [id number] [address] [place] [address] Urine Urobilinogen January 23, 2024 4:18pm 1.0 0.2-1.0 [facility] [id number] [address] [place] [address] Urine Leukocyte Esterase January 23, 2024 4:18pm Negative Negative [facility] [id number] [address] [place] [address] Urine RBC January 23, 2024 4:18pm 0-3 /HPF 0-3 [facility] [id number] [address] [place] [address] Urine Culture Indicated January 23, 2024 4:18pm No Culture not indicated. [facility] [id number] [address] [place] [address] Urine Amorphous Sediment January 23, 2024 4:18pm Rare /HPF [facility] [id number] [address] [place] [address] Sodium Level January 23, 2024 4:05pm 141 mmol/L 136-145 [facility] [id number] [address] [place] [address] Potassium Level January 23, 2024 4:05pm 3.4 mmol/L 3.5-5.1 [facility] [id number] [address] [place] [address] Chloride Level January 23, 2024 4:05pm 113 mmol/L 98-107 [facility] [id number] [address] [place] [address] Carbon Dioxide Level January 23, 2024 4:05pm 25 mmol/L 21-32 [facility] [id number] [address] [place] [address] Anion Gap January 23, 2024 4:05pm 3.0 MMOL/L 1.0-15.0 [facility] [id number] [address] [facility] [place] [address] Blood Urea Nitrogen January 23, 2024 4:05pm 19 mg/dL 7-18 [facility] [id number] [address] [facility] [place] [address] Creatinine January 23, 2024 4:05pm 0.80 mg/dL 0.55-1.02 [facility] [id number] [address] [facility] [place] [address] Estimated GFR (MDRD) January 23, 2024 4:05pm > 60 UNITS= mL/min/1.73m squared Unable to flag low results Results less than 60 may warrant further investigationPat ients race is not known. If the patient is , multiply the calculated GFR result provided by 1.21. GFR Estimate should not be used to alter drug dosages. [facility] [id number] [address] [facility] [place] [address] BUN/Creatinine Ratio January 23, 2024 4:05pm 23.7 10.0-20.00 [facility] [id number] [address] [facility] [place] [address] Glucose Level January 23, 2024 4:05pm 130 mg/dL 70-99 [place] [id number] [address] [facility] [place] [address] Calculated Osmolality January 23, 2024 4:05pm 285 275-295 [place] [id number] [address] [facility] [place] [address] Calcium Level January 23, 2024 4:05pm 8.5 mg/dL 8.5-10.1 [facility] [id number] [address] [place] [address] [address] Troponin I High Sensitivity January 23, 2024 4:05pm 4.9 ng/L 0.00-49.9 | | FEMALE: | MALE: || Low Risk (Negative) | < 50 ng/L | < 80 ng/L | | Intermediate Risk | 50 - 110 ng/L | 80 - 110 ng/L | | High Risk (Critical)| >= 111 ng/L | >= 111 ng/L | | | [facility] [id number] [address] [facility] [place] [address] Aspartate Amino Transf (AST/SGOT) January 23, 2024 4:05pm 20 U/L 15-37 [facility] [id number] [address] [facility] [place] [address] Alanine Aminotransfera se (ALT/SGPT) January 23, 2024 4:05pm 20 U/L 13-56 [facility] [id number] [address] [facility] [place] [address] Alkaline Phosphatase January 23, 2024 4:05pm 63 U/L 45-117 [place] [id number] [address] [facility] [place] [address] Total Bilirubin January 23, 2024 4:05pm 0.26 mg/dL 0.20-1.00 [facility] [id number] [address] [facility] [place] [address] Total Protein January 23, 2024 4:05pm 6.9 g/dL 6.40-8.20 [facility] [id number] [address] [facility] [place] [address] Albumin January 23, 2024 4:05pm 3.5 g/dL 3.4-5.0 [facility] [id number] [address] [facility] [place] [address] Globulin January 23, 2024 4:05pm 3.4 Ratio 1.3-4.[id number] [facility] [address] Albumin/Globul in Ratio January 23, 2024 4:05pm 1.0 Ratio 1.2-2.3 [facility] [id number] [address] [facility] [address] Lipase January 23, 2024 4:05pm 29 U/L 13-75 [facility] [id number] [address] [facility] [address] Diagnostic Imaging Reports Report Dictated Date/Time Dictated By Status Magnetic Resonance Imaging Report January 23, 2024 4:47pm Edilma Kaiser MD completed [facility] [address] [facility] [place] [address] Diagnostic Imaging Signed Patient: Sirisha Veras : [...] Signed By: Edilma Kaiser MD Signed Date/Time:01/23/241654 [employer] T[employer] Helper: [email or web address] Dictated Date: 01/23/241646 Transcribed Date/Time:01/23/241646 CC: Jackelyn Morales PA-C; Victoriano Flores DO ; Report Dictated Date/Time Dictated By Status Magnetic Resonance Imaging Report January 23, 2024 5:00 pm Jorge A Tong MD completed [address], [address] Diagnostic Imaging Signed Patient: Sirisha Veras : [...] By: Jorge A Tong MD Signed Date/Time:01/23/241701 [employer] T[employer] Helper: [email or web address] Dictated Date: 01/23/241699 Transcribed Date/Time:01/23/241699 CC: Jackelyn Morales PA-C; Victoriano Flores DO ; Vital Signs Vital Reading Result Reference Range Collection Date/Time Weight 68.03 kg January 23, 2024 3:45pm Body Temperature 97.9 [degF] 97.6-99.6 January 23, 2024 3:45pm Heart Rate 91 /min 60-90 January 23, 2024 3:45pm Respiratory rate 16 /min 12-24 January 23, 2024 3:45pm Oxygen saturation by Pulse oximetry 95 % 95-100 January 23, 2024 3:45 pm BP Systolic 139 mm[Hg] January 23, 2024 3:45pm BP Diastolic 84 mm[Hg] January 23, 2024 3:45pm Advance Directives Advance Directive Response Recorded Date/ Time Do you have Advance Directives? No April 26, 2021 7:26am Insurance Providers Guarantor Sirisha Veras Address [address] [facility] [place] [address] Contact Info. Home Phone: Payer Policy Id Coverage Id Subscriber's Name Subscriber Id Effective Date Expiration Date [employer] Medicare MCREP [id number] Sirisha Veras [id number] Humana Gold Medicare Advantage [id number] Sirisha Veras [id number] Humana [id number] Sirisha Veras [id number] Reg 1 Claims [id number] [employer] [place] [id number] Free Care [id number] Sirisha Veras [id number] Medicare [id number] Sirisha Veras [id number] Self Pay Self N/A Encounters Encounter Location(s) Arrival/Admit Date Discharge/Depart Date Provider(s) Registered Recurring [facility]-Physical Therapy [place] January 08, 2024 10:00am ROSALEE Romo Departed Emergency [facility]-Emergency Room January 23, 2024 3:45pm January 23, 2024 5:40pm null Functional Status Observation Response Date Recorded Current Level Of Function Mod Oswestry: 44% disa bility. November 25, 2023 1:42pm Plan of Treatment Future Tests Future scheduled test information is unavailable Pending Tests Pending diagnostic test information is unavailable Future Visits Future appointment information is unavailable Referrals to Other Providers Referral information is unavailable Future Procedures Future procedure information is unavailable Future Medications Future medication information is unavailable Patient Instructions [place] Diet Nausea and Vomiting, Adult (DC) Hospital [...]
--- OUTSIDE RECORDS SUMMARY | 2024-02-06 01:07 | External Medical Summary ---
Author Name Unknown Address Unknown Organization L[facility] [address] [place] [address] Laboratory Report Ordering Provider Test Date Status Sandra Pastrana 01/23/2024 16:05 Final Observation Date Value Abnormality Reference (Units ) Status Lipase 01/23/2024 16:26 29 Normal 13-75 (U/L) F inal Performing Location [facility] [address] [place] [address]
--- OUTSIDE RECORDS SUMMARY | 2024-02-06 01:07 | External Medical Summary ---
Author Name Unknown Address Unknown Organization L1E:[facility] [address] [place] [address] Laboratory Report Ordering Provider Test Date Status Sandra Pastrana 01/23/2024 16:05 Final Observation Date Value Abnormality Reference (Units ) Status White Blood Count 01/23/2024 16:07 4.1 Normal 4.1-10.2 (10 3/uL) Final RBC 01/23/2024 16:07 4.42 Normal 3.80-5.20 (10 6/uL) Final Hemoglobin 01/23/2024 16:07 12.7 Normal 11.5-15.5 (g/dL) Final HCT 01/23/2024 16:07 38.7 Normal 35-46 (%) Final MCV 01/23/2024 16:07 87.6 Normal 82.0-98.0 (fL) Final MCH 01/23/2024 16:07 28.7 Normal 27.0-34.0 (pg) Final MCHC 01/23/2024 16:07 32.8 Normal 31.0-36.0 (g/dL) Final Erythrocyte distribution width [Entitic volume] 01/23/2024 16:07 40.0 Normal 37-49 (fL) Final RDW 01/23/2024 16:07 12.5 Normal 11.8-14.8 (%) Final Platelets 01/23/2024 16:07 221 Normal 150-360 (10 3/uL) Final Mean Platelet Volume 01/23/2024 16:07 9.2 Below low normal 9.4-12.3 (fL) Final Segs 01/23/2024 16:07 53.4 Normal 42-75 (%) Final Lymphs, absolute 01/23/2024 16:07 33.6 Normal 14-42 (%) Final Monos 01/23/2024 16:07 10.6 Normal 4-13 (%) Final Eosinophils 01/23/2024 16:07 1.7 Normal 0-6 (%) Final Basos 01/23/2024 16:07 0.5 Normal 0-2 (%) Final Immature Granulocyte, Percent 01/23/2024 16:07 0.2 Normal 0.0-0.7 (%) Final NRBC% (Auto) 01/23/2024 16:07 0.0 Normal 0.0-0.2 (/100 WBC) Final Absolute Segs 01/23/2024 16:07 2.2 Normal 1.8-6.6 (10 3uL) Final Lymphocytes [#/volume] in Specimen by Automated count 01/23/2024 16:07 1.4 Normal 1.0-3.1 (10 3/uL) Final Monos, Abs 01/23/2024 16:07 0.4 Normal 0.0-1.0 (10 3uL) Final Eos, Abs 01/23/2024 16:07 0.1 Normal 0.0-0.5 (10 3uL) Final Basos, Abs 01/23/2024 16:07 0.0 Normal 0.0-0.1 (10 3/uL) Final Granulocytes [#/volume] in Blood by Automated count 01/23/2024 16:07 0.0 Normal 0.0-0.0 (10 3/uL) Final NRBC # (Auto) 01/23/2024 16:07 0.000 Normal 0.000-0.012 (10 3/uL) Final Performing Location [address] [address]
--- OUTSIDE RECORDS SUMMARY | 2024-02-06 01:07 | External Medical Summary | Continuity of Care Document ---
Author Name Unknown Address [address] [place] [address] Phone Organization [facility] Address [address] [place] [address] Phone Support Name Relationship Address Phone Jackelyn Morales Primary Care Provider [address] [place] [address] Clarence Romo Attending Provider [address] [place] [address] Victoriano Flores Emergency Provider [address] [place] [address] Chief Complaint and Reason for Visit Chief [...] 100 MG PO daily 30 2019 10:05am [facility] er 2019 7:19am Azelastine Hcl Active 2 [...] injector Active 120 MG SUBCUT every month [facility] [place] 2020 11:00pm Metoprolol Succinate (Toprol Xl) 25 mg tablet extended release 24 hr [facility] Clindamycin Hcl Disconti nued 300 [facility] er 2020 12:40p m Fluconazole Active 100 [...] January 23, 2024 4:05pm 4.1 10^3/uL 4.1-10.2 [facility] [id number] [address] [place] [address] Red Blood Count January 23, 2024 4:05pm 4.42 10^6/uL 3.80-5.20 [facility] [id number] [address] [place] [address] Hemoglobin January 23, 2024 4:05pm 12.7 g/dL 11.5-15.5 [facility] [id number] [address] [place] [address] Hematocrit January 23, 2024 4:05pm 38.7 % 35-46 [facility] [id number] [address] [place] [address] Mean Corpuscular Volume January 23, 2024 4:05pm 87.6 fL 82.0-98.0 [facility] [id number] [address] [facility] [place] [address] Mean Corpuscular Hemoglobin January 23, 2024 4:05pm 28.7 pg 27.0-34.0 [facility] [id number] [address] [facility] [place] [address] Mean Corpuscular Hemoglobin Concent January 23, 2024 4:05pm 32.8 g/dL 31.0-36.0 [facility] [id number] [address] [place] [address] RDW Standard Deviation January 23, 2024 4:05pm 40.0 fL 37-49 [facility] [id number] [address] [facility] [place] [address] RDW Coefficient of Variation January 23, 2024 4:05pm 12.5 % 11.8-14.8 [facility] [id number] [address] [facility] [place] [address] Platelet Count January 23, 2024 4:05pm 221 10^3/uL 150-360 [facility] [id number] [address] [facility] [place] [address] Mean Platelet Volume January 23, 2024 4:05pm 9.2 fL 9.4-12.3 [facility] [id number] [address] [facility] [place] [address] Neutrophils (%) (Auto) January 23, 2024 4:05pm 53.4 % 42-75 [facility] [id number] [address] [facility] [place] [address] Lymphocytes (%) (Auto) January 23, 2024 4:05pm 33.6 % 14-42 [facility] [id number] [address] [facility] [place] [address] Monocytes (%) (Auto) January 23, 2024 4:05pm 10.6 % 4-13 [facility] [id number] [address] [facility] [place] [address] Eosinophils (%) (Auto) January 23, 2024 4:05pm 1.7 % 0-6 [facility] [id number] [address] [facility] [place] [address] Basophils (%) (Auto) January 23, 2024 4:05pm 0.5 % 0-2 [facility] [id number] [address] [facility] [place] [address] Immature Granulocytes % January 23, 2024 4:05pm 0.2 % 0.0-0.7 [facility] [id number] [address] [facility] [place] [address] Neutrophils # (Auto) January 23, 2024 4:05pm 2.2 10^3uL 1.8-6.6 [facility] [id number] [address] [facility] [place] [address] Lymphocytes # (Auto) January 23, 2024 4:05pm 1.4 10^3/uL 1.0-3.1 [facility] [id number] [address] [place] [address] Monocytes # (Auto) January 23, 2024 4:05pm 0.4 10^3uL 0.0-1.0 [facility] [id number] [address] [place] [address] Eosinophils # (Auto) January 23, 2024 4:05pm 0.1 10^3uL 0.0-0.5 [facility] [id number] [address] [place] [address] Basophils # (Auto) January 23, 2024 4:05pm 0.0 10^3/uL 0.0-0.1 [facility] [id number] [address] [place] [address] Urine Color January 23, 2024 4:18pm Yellow Yellow [facility] [id number] [address] [place] [address] Urine Clarity January 23, 2024 4:18pm Clear Clear [facility] [id number] [address] [place] [address] Urine pH January 23, 2024 4:18pm 5.5 6.0-8.0 [facility] [id number] [address] [place] [address] Urine Specific [place] January 23, 2024 4:18pm 1.025 1.000-1.03 0 [facility] [id number] [address] [place] [address] Urine Protein January 23, 2024 4:18pm Negative Negative [facility] [id number] [address] [place] [address] Urine Glucose (UA) January 23, 2024 4:18pm Negative Negative [facility] [id number] [address] [place] [address] Urine Ketones January 23, 2024 4:18pm Negative Negative [facility] [id number] [address] [place] [address] Urine Occult Blood January 23, 2024 4:18pm Trace-int act Negative [facility] [id number] [address] [place] [address] Urine Nitrate January 23, 2024 4:18pm Negative Negative [facility] [id number] [address] [place] [address] Urine Bilirubin January 23, 2024 4:18pm Negative Negative [facility] [id number] [address] [place] [address] Urine Urobilinogen January 23, 2024 4:18pm 1.0 0.2-1.0 [facility] [id number] [address] [place] [address] Urine Leukocyte Esterase January 23, 2024 4:18pm Negative Negative [facility] [id number] [address] [place] [address] Urine RBC January 23, 2024 4:18pm 0-3 /HPF 0-3 [facility] [id number] [address] [place] [address] Urine Culture Indicated January 23, 2024 4:18pm No Culture not indicated. [facility] [id number] [address] [place] [address] Urine Amorphous Sediment January 23, 2024 4:18pm Rare /HPF [facility] [id number] [address] [place] [address] Sodium Level January 23, 2024 4:05pm 141 mmol/L 136-145 [facility] [id number] [address] [place] [address] Potassium Level January 23, 2024 4:05pm 3.4 mmol/L 3.5-5.1 [facility] [id number] [address] [place] [address] Chloride Level January 23, 2024 4:05pm 113 mmol/L 98-107 [facility] [id number] [address] [place] [address] Carbon Dioxide Level January 23, 2024 4:05pm 25 mmol/L 21-32 [facility] [id number] [address] [place] [address] Anion Gap January 23, 2024 4:05pm 3.0 MMOL/L 1.0-15.0 [facility] [id number] [address] [facility] [place] [address] Blood Urea Nitrogen January 23, 2024 4:05pm 19 mg/dL 7-18 [facility] [id number] [address] [facility] [place] [address] Creatinine January 23, 2024 4:05pm 0.80 mg/dL 0.55-1.02 [facility] [id number] [address] [place] [address] Estimated GFR (MDRD) January 23, 2024 4:05pm > 60 UNITS= mL/min/1.73m squared Unable to flag low results Results less than 60 may warrant further investigationPat ients race is not known. If the patient is , multiply the calculated GFR result provided by 1.21. GFR Estimate should not be used to alter drug dosages. [facility] [id number] [address] [facility] [place] [address] BUN/Creatinine Ratio January 23, 2024 4:05pm 23.7 10.0-20.00 [facility] [id number] [address] [facility] [place] [address] Glucose Level January 23, 2024 4:05pm 130 mg/dL 70-99 [place] [id number] [address] [facility] [place] [address] Calculated Osmolality January 23, 2024 4:05pm 285 275-295 [place] [id number] [address] [facility] [place] [address] Calcium Level January 23, 2024 4:05pm 8.5 mg/dL 8.5-10.1 [facility] [id number] [address] [place] [address] [address] Troponin I High Sensitivity January 23, 2024 4:05pm 4.9 ng/L 0.00-49.9 | | FEMALE: | MALE: || Low Risk (Negative) | < 50 ng/L | < 80 ng/L | | Intermediate Risk | 50 - 110 ng/L | 80 - 110 ng/L | | High Risk (Critical)| >= 111 ng/L | >= 111 ng/L | | | [facility] [id number] [address] [facility] [place] [address] Aspartate Amino Transf (AST/SGOT) January 23, 2024 4:05pm 20 U/L 15-37 [facility] [id number] [address] [facility] [place] [address] Alanine Aminotransfera se (ALT/SGPT) January 23, 2024 4:05pm 20 U/L 13-56 [facility] [id number] 214 [facility] [place] [address] Alkaline Phosphatase January 23, 2024 4:05pm 63 U/L 45-117 [place] [id number] [address] [facility] [place] [address] Total Bilirubin January 23, 2024 4:05pm 0.26 mg/dL 0.20-1.00 [facility] [id number] [address] [facility] [place] [address] Total Protein January 23, 2024 4:05pm 6.9 g/dL 6.40-8.20 [facility] [id number] [address] [facility] [place] [address] Albumin January 23, 2024 4:05pm 3.5 g/dL 3.4-5.0 [facility] [id number] [address] [facility] [place] [address] Globulin January 23, 2024 4:05pm 3.4 Ratio 1.3-4.[id number] [facility] [address] Albumin/Globul in Ratio January 23, 2024 4:05pm 1.0 Ratio 1.2-2.3 [facility] [id number] [address] [facility] [address] Lipase January 23, 2024 4:05pm 29 U/L 13-75 [facility] [id number] 214 [facility] [address] Diagnostic Imaging Reports Report Dictated Date/Time Dictated By Status Magnetic Resonance Imaging Report January 23, 2024 4:47pm Edilma Kaiser MD completed [facility] [address] [facility] [place] [address] Diagnostic Imaging Signed Patient: Sirisha Veras : [...] Signed By: Edilma Kaiser MD Signed Date/Time:01/23/241654 Delivery Representative: PWRSCRIBE Dictated Date: 01/23/241646 Transcribed Date/Time:01/23/241646 CC: Jackelyn Morales PA-C; Victoriano Flores DO ; Report Dictated Date/Time Dictated By Status Magnetic Resonance Imaging Report January 23, 2024 5:00 pm Jorge A Tong MD completed [address], [address] Diagnostic Imaging Signed Patient: Sirisha Veras : [...] By: Jorge A Tong MD Signed Date/Time:01/23/241701 Delivery Representative: PWRSCRIBE Dictated Date: 01/23/241699 Transcribed Date/Time:01/23/241699 CC: [...] 7:26am Insurance Providers Guarantor Sirisha Veras Address [address] [facility] [place] [address] Contact Info. Home Phone: Payer Policy Id Coverage Id Subscriber's Name Subscriber Id Effective Date Expiration Date [employer] Medicare MCREP [id number] Sirisha Veras [id number] [employer] Gold Medicare Advantage [id number] Sirisha Veras [id number] Humana [id number] Sirisha Veras [id number] Reg 1 Claims [id number] [employer] [place] [id number] Free Care [id number] Sirisha Veras [id number] Medicare [id number] Sirisha Veras [id number] Self Pay Self N/A Encounters Encounter Location(s) Arrival/Admit Date Discharge/Depart Date Provider(s) Registered Recurring [facility]-Physical Therapy [place] January 08, 2024 10:00am ROSALEE Romo Departed Emergency [facility]-Emergency Room January 23, 2024 3:45pm January 23, [...] Future medication information is unavailable Patient Instructions [place] Diet Nausea and Vomiting, Adult (DC) Hospital [...]
[2024-02-06] MEDS: ACETAMINOPHEN 500 MG TAB PO PRN (05:01)
[2024-02-06] MEDS: POLYETHYLENE (MIRALAX) 17 GM PACK PO SCH (05:34)
[2024-02-06] MEDS: LEVOTHYROXINE SODIUM 125 MCG TABLET PO SCH (05:34)
[2024-02-06 05:54] LABS: Basophils # (auto) 0.03 K/uL (0.00-0.20); Basophils % (auto) 0.3 %; Hemoglobin 10.8 g/dl (12.0-16.0); Immature Granulocytes # (auto) 0.04 K/uL (0.01-0.20); Immature Granulocytes % (auto) 0.4 %; Lymphocytes # (auto) 1.39 K/uL (1.20-3.40); Lymphocytes % (auto) 12.5 %; Mean Corpuscular Hemoglobin 28.4 pg (25.0-34.0); Mean Corpuscular Hgb Conc 32.7 g/dL (32.0-36.0); Mean Corpuscular Volume 86.8 fL (80.0-100.0); Mean Platelet Volume 9.4 fL (9.4-12.4); Monocytes # (auto) 0.68 K/uL (0.11-0.59); Monocytes % (auto) 6.1 %; Neutrophils # (auto) 8.98 K/uL (1.40-6.50); Neutrophils % (auto) 80.7 %; Platelet Count 226 K/uL (130-400); RDW Coefficient of Variation 12.4 % (11.5-14.5); RDW Standard Deviation 39.4 fL (36.4-46.3); White Blood Count 11.12 K/ul (4.8-10.8)
[2024-02-06 06:05] LABS: BUN Creatinine Ratio 26.6 (10-20); Calcium 8.5 mg/dl (8.6-10.3); Creatinine Clr Calc Pharmacy 85.2 ml/min; Est GFR (African American) 108.5 ml/min; Est GFR (Non-African American) 93.6 ml/min; Potassium 3.8 mmol/L (3.5-5.1)
--- NOTE | 2024-02-06 07:47 | Orthopedic Progress Note ---
Date of Service February 06, 2024 Assessment & Plan (1) Lumbosacral radiculopathy: Plan: Patient is stable postop day #1. She is nauseous. She needs to continue to ask for her antinausea medication. She should keep her diet light at this point. She will try to minimize use of narcotics and use extra strength Tylenol primarily for pain control. As she gets up and moves so likely help with the nausea. Continue with GI DVT prophylaxis and get her moving physical therapy. We are going to keep her throughout the weekend and likely discharged home on Thursday Admission and Anticipated Discharge Date Admission Date: February 05, 2024 Subjective Patient was seen bedside in room 317. She was nauseous overnight. Even water made her feel nauseous. She has not had any solid food. She has not been up and walking. The pain is well-controlled. She just had medication less than half hour ago for her nausea which has not yet kicked in. She is not having any abdominal pain. She does not have any pain going down her legs. She denies any other numbness, tingling, paresthesias Physical Exam Physical Exam: On exam she is alert and oriented. Visual navarro are grossly intact. Abdomen soft and nontender his calves are supple and nontender her strength and sensation are both intact. Her gait was not observed. Her dressing is clean dry and intact Results & Data Vital Signs (Past 12 Hours) Vital Signs Temp Pulse Pulse Resp BP Pulse Ox O2 Del Method 02/06/24 04:54 37.0 C 84 18 137/80 96 Room Air 02/05/24 23:43 37.0 C 87 18 149/84 H 96 Room Air 02/05/24 19:56 36.4 C L 90 19 143/86 H 97 Room Air
[2024-02-06] MEDS: CETIRIZINE HCL 10 MG TABLET PO SCH (08:49)
[2024-02-06] MEDS: dexAMETHasone 6 MG in SYRINGE 0 ML IV SCH (08:49)
[2024-02-06] MEDS: LOSARTAN POTASSIUM 50 MG TAB PO SCH (08:49)
[2024-02-06] MEDS: ASPIRIN 81 MG ECTAB PO SCH (08:50)
--- NOTE | 2024-02-06 11:34 | Hospitalist Progress Note ---
Date of Service February 06, 2024 Assessment & Plan (1) Status post lumbar surgery: (2) Neurogenic claudication due to lumbar spinal stenosis: Plan: per previous hospitalist notes with addendum: Post op day# 0 S/P removal of prior instrumentation L2-L3 and decompression fusion L1-L2 by Dr Nereida ROBLES#25ml Pain management per ortho Wound management per ortho PT/OT as appropriate DVT prophylaxis per ortho Incentive spirometry Monitor H&H for acute blood loss anemia; pre-op Hgb: 12 02/05 Hg 12 --> 10.8 asymptomatic monitor otherwise stable overall (3) Hypertension: Plan: Stable Continue losartan, metoprolol (4) History of atrial fibrillation: Plan: Anticoagulated on Eliquis Eliquis currently on hold, resume as able per orthospine Continue metoprolol, flecainide 02/05 resume Eliquis once ok with ortho (5) GERD (gastroesophageal reflux disease): Plan: History Mai fundoplication Continue PPI (6) Hypothyroidism: Plan: Continue levothyroxine (7) Sleep apnea: Plan: Intolerant to CPAP DVT Prophylaxis SCDs Disposition per primary service Follows with Jackelyn Morales PA-C in [place], [place] for routine care Thank you for this consultation. We will follow the patient with you during their hospital stay. You can reach a member of the [facility] Hospitalist Team 08/06 via [employer] Admission and Anticipated Discharge Date Admission Date: February 05, 2024 Subjective ff up for s/p back surgery etc seen resting in bed, comfortable in good spirits states she feels fine overall minimal back pain ambulating in the hallways with no issues no chest pain, dyspnea, palpitations, dizziness no other symptoms Review of Systems Review of Systems: all noted and negative except for above Physical Exam Physical Exam: General- oriented x 3, not in distress, speaks in sentences with no effort or accessory muscle use Eyes- anicteric Neck- no JVD Lungs- clear breath sounds bilaterally, no crackles/wheezing Heart- normal rate, regular rhythm; no murmurs Abdomen- normal bowel sounds, nondistended, soft, no tenderness Extremities- no pretibial edema, no calf tenderness Back- dressing in place: no bleeding or discharge drain in place: (+) sero-sanguinous fluid Neuro- alert, oriented x 3; no gross focal neurologic deficits Skin- warm & dry Results & Data Results & Data Vital Signs (Past 12 Hours) Vital Signs Temp Pulse Resp BP Pulse Ox O2 Del Method 02/06/24 08:45 37.2 C 76 18 129/75 94 Room Air 02/06/24 04:54 37.0 C 84 18 137/80 96 Room Air 02/05/24 23:43 37.0 C 87 18 149/84 H 96 Room Air all noted and reviewed including below
--- NOTE | 2024-02-07 07:40 | Orthopedic Progress Note ---
Date of Service February 07, 2024 Assessment & Plan (1) Neurogenic claudication due to lumbar spinal stenosis: Plan: Patient is doing well postop day #2. Continue with GI DVT prophylaxis as well as pain control measures. She is going to ambulate with physical therapy. If all goes well we will likely be able to discharge her to home tomorrow. Admission and Anticipated Discharge Date Admission Date: February 05, 2024 Subjective Patient was seen bedside in room 317. She is doing well this morning. Pain is well-controlled. Her nausea has resolved. She has been up and walking with therapy and doing well. She has not yet had a bowel movement. She is tolerating p.o. She denies any other numbness, tingling, or paresthesias. Physical Exam Physical Exam: On exam she is alert and oriented. Her abdomen soft and nontender calves are s upple nontender. HERNANDEZ drain is in place. Her dressing is clean dry and intact. Her strength and sensation are both intact her gait was not observed. Cardiovascular exam reveals no gross abnormalities. Results & Data Vital Signs (Past 12 Hours) Vital Signs Temp Pulse Resp BP Pulse Ox O2 Del Method 02/06/24 21:22 36.9 C 70 18 131/66 96 Room Air
--- NOTE | 2024-02-07 10:12 | Hospitalist Progress Note ---
Date of Service February 07, 2024 Assessment & Plan (1) Status post lumbar surgery: (2) Neurogenic claudication due to lumbar spinal stenosis: Plan: per previous hospitalist notes with addendum: Post op day# 0 S/P removal of prior instrumentation L2-L3 and decompression fusion L1-L2 by Dr Nereida ROBLES#25ml Pain management per ortho Wound management per ortho PT/OT as appropriate DVT prophylaxis per ortho Incentive spirometry Monitor H&H for acute blood loss anemia; pre-op Hgb: 12 02/05 Hg 12 --> 10.8 asymptomatic monitor 02/06 stable overall monitor closely (3) Hypertension: Plan: Stable Continue losartan, metoprolol (4) History of atrial fibrillation: Plan: Anticoagulated on Eliquis Eliquis currently on hold, resume as able per orthospine Continue metoprolol, flecainide 02/06 resume Eliquis once ok with ortho (5) GERD (gastroesophageal reflux disease): Plan: History Mai fundoplication Continue PPI (6) Hypothyroidism: Plan: Continue levothyroxine (7) Sleep apnea: Plan: Intolerant to CPAP DVT Prophylaxis SCDs Disposition per primary service Follows with Jackelyn Morales PA-C in [place], [place] for routine care Thank you for this consultation. We will follow the patient with you during their hospital stay. You can reach a member of the [facility] Hospitalist Team 08/06 via [employer] Admission and Anticipated Discharge Date Admission Date: February 05, 2024 Subjective ff up for s/p back surgery, etc seen resting in bed, comfortable states she feels fine overall having some pain over the incision sites with movement no chest pain, dyspnea, palpitations, dizziness no other new symptoms Review of Systems Review of Systems: all noted and negative except for above Physical Exam Physical Exam: General- oriented x 3, not in distress, speaks in sentences with no effort or accessory muscle use Eyes- anicteric Neck- no JVD Lungs- clear breath sounds bilaterally, no crackles Heart- normal rate, regular rhythm; no murmurs Abdomen- normal bowel sounds, nondistended, soft, nontender Extremities- no pretibial edema, no calf tenderness Back- dressing in place, no bleeding/discharge HERNANDEZ drain- sero sanguinous output Neuro- alert, oriented x 3; no gross focal neurologic deficits Skin- warm & dry Results & Data Results & Data Vital Signs (Past 12 Hours) Vital Signs Temp Pulse Resp BP Pulse Ox O2 Del Method 02/07/24 07:58 37.4 C 73 18 128/77 95 Room Air all noted and reviewed including below
[2024-02-07 10:39] LABS: Basophils # (auto) 0.02 K/uL (0.00-0.20); Basophils % (auto) 0.2 %; Hematocrit (blood only) 32.5 % (37.0-47.0); Hemoglobin 10.5 g/dl (12.0-16.0); Immature Granulocytes # (auto) 0.04 K/uL (0.01-0.20); Immature Granulocytes % (auto) 0.4 %; Lymphocytes # (auto) 0.76 K/uL (1.20-3.40); Lymphocytes % (auto) 7.9 %; Mean Corpuscular Hemoglobin 28.7 pg (25.0-34.0); Mean Corpuscular Hgb Conc 32.3 g/dL (32.0-36.0); Mean Corpuscular Volume 88.8 fL (80.0-100.0); Mean Platelet Volume 9.8 fL (9.4-12.4); Monocytes # (auto) 0.47 K/uL (0.11-0.59); Monocytes % (auto) 4.9 %; Neutrophils # (auto) 8.32 K/uL (1.40-6.50); Neutrophils % (auto) 86.6 %; Platelet Count 194 K/uL (130-400); RDW Coefficient of Variation 12.8 % (11.5-14.5); RDW Standard Deviation 41.7 fL (36.4-46.3); Red Blood Count 3.66 M/uL (4.20-5.40); White Blood Count 9.61 K/ul (4.8-10.8)
[2024-02-08 08:50] LABS: Basophils # (auto) 0.03 K/uL (0.00-0.20); Basophils % (auto) 0.3 %; Eosinophils # (auto) 0.02 K/uL (0.00-0.50); Eosinophils % (auto) 0.2 %; Hematocrit (blood only) 34.5 % (37.0-47.0); Hemoglobin 10.9 g/dl (12.0-16.0); Immature Granulocytes # (auto) 0.03 K/uL (0.01-0.20); Immature Granulocytes % (auto) 0.3 %; Lymphocytes % (auto) 39.1 %; Mean Corpuscular Hemoglobin 28.7 pg (25.0-34.0); Mean Corpuscular Hgb Conc 31.6 g/dL (32.0-36.0); Mean Corpuscular Volume 90.8 fL (80.0-100.0); Mean Platelet Volume 9.7 fL (9.4-12.4); Monocytes # (auto) 0.51 K/uL (0.11-0.59); Monocytes % (auto) 5.7 %; Neutrophils # (auto) 4.86 K/uL (1.40-6.50); Neutrophils % (auto) 54.4 %; Platelet Count 210 K/uL (130-400); RDW Coefficient of Variation 12.7 % (11.5-14.5); RDW Standard Deviation 41.6 fL (36.4-46.3); White Blood Count 8.95 K/ul (4.8-10.8)
[2024-02-08 09:05] LABS: BUN Creatinine Ratio 27.8 (10-20); Est GFR (Non-African American) 78.6 ml/min; Potassium 3.6 mmol/L (3.5-5.1)
--- NOTE | 2024-02-08 10:21 | Discharge Summary ---
Date of Service February 08, 2024 Admission HPI Per Admitting Provider This is a 63-year-old female who presents with chronic persistent back and leg pain Course of nonoperative care is here for surgical invention. Principal Diagnosis Lumbar spinal stenosis with neurogenic claudication Discharge Data Allergies Allergy/AdvReac Type Severity Reaction Status Date / Time Sulfa (Sulfonamide Allergy Intermediate Rash Verified 02/05/24 10:58 Antibiotics) azithromycin AdvReac Severe Severe Verified 02/05/24 10:58 [From Zithromax Z-Ernesto] abdominal pain Consultations 02/05/24 15:48 Consult Hospitalist Routine Procedures Performed Operation Date: 02/05/24 12:35 Actual Procedures p L1-L2 Decompression and Fusion, L2-L3 Hardware Removal, Spinal Cord Monitoring(Not Applicable) - Juan M Padron DO Ordered Studies 02/05/24 12:35 [place] lumbar spine 2-3V Routine Hospital Course (1) Neurogenic claudication due to lumbar spinal stenosis: Patient underwent lumbar decompression fusion tolerated as well as negative orthopedic for postoperative or possibly progressed appropriately excellent strength testing HERNANDEZ drain decreased and subsequent discharge home. Discharge orders instructions from the chart for further review. Total Time Total Time Spent Total Time Spent (In Minutes): 20 minutes Discharge Plan Discharge Items Patient Disposition: Home - Self-Care Reason For Visit: Lumbar Spondylosis, Lumbar Disc Herniation, Radicu Discharge Diagnosis: Lumbar spinal stenosis with neurogenic claudication Activity: As commented below Non-emergency contact: Primary Care Provider Call non-emergency contact if: you have any medication questions Follow-up/Referrals: Jackelyn Morales PA-C [Primary Care Provider] - Diet: Regular Addtl Attending Provider Instructions: ACTIVITY RECOMMENDATIONS: SELF CARE INSTRUCTIONS AFTER THORACIC/LUMBAR FUSIONS 1. You may walk to your tolerance. It is good exercise for your legs and back. Expect some back and intermittent leg aches and pains. 2. You may perform "counter-top" level activities (make a sandwich, sanjiv with a project, etc.). 3. No bending or lifting of more than 10 pounds or back twisting of any nature (roll like a log when turning in bed). 4. You may ride in a car for 20-30 minutes at a time. No driving until after your first visit with your doctor. 5. Frequent changes of position and restricting sitting to 30 minutes at a time will help limit the amount of back spasms and stiffness you may experience. 6. You may discontinue the use of ambulatory aids (cane, crutches, etc.) once your strength and confidence allow. 7. You may hand spring repairer helper the shower and let water strike your incision when you arrive home at least once daily. Do not take a tub bath, sit in a hot tub or go into a swimming pool until after your first recheck in the office. SPECIAL CARE INSTRUCTIONS: VERY IMPORTANT TO READ AND REVIEW A. Your surgical incision has been closed with a cosmetic suture under the skin that will dissolve in about 6 weeks. In 14 days, you can use a pair of clean scissors and cut the suture that is left outside of the skin at the ends of your incision. 1. The small skin tapes can be removed 7 days after surgery if they have not fallen off by that point. 2. You may keep the wound open to air as much as possible to promote healing after post-op day number 5 unless told otherwise by your doctor. 3. If you think the wound looks like it is becoming infected (redness or worsening drainage) and/or you are experiencing fever, chill or worsening back pain and muscle spasms, contact the office so that we may evaluate you as soon as possible. B. Complications are uncommon, but please contact us if you have any signs or symptoms of: 1. wound infection (fever higher than 102.5 degrees F, redness, separation of wound, drainage, or increasing pain from the incision) 2. blood clots in legs (pain, swelling, redness and warmth in legs) 3. urinary tract infection (fever higher than 102.5 degrees F, burning upon urination or increased frequency of urination) 4. nerve problems (inability to walk on your toes or heels, numbness, loss of bowel or bladder control) 5. any other symptoms that concern you C. Please call the office at if you have any concerns or questions about your operation or recovery. D. No smoking! Smoking drastically decreases the chance of a solid fusion. E. Do not take any anti-inflammatory medications (Indocin, Advil, Motrin, Aspirin, Naprosyn, etc.) as these may inhibit the chance of a solid fusion. Tylenol is okay to take for pain. MANAGING PAIN AFTER SPINAL SURGERY 1. Narcotic medication is intended for short-term use and will be provided for surgical pain. Surgical pain usually lasts for a period of 4-6 weeks. Narcotic medication includes Percocet, Vicodin, Darvocet, Tylenol #3 or Lortab. 2. Longer-term pain is more appropriately treated with non-narcotic medication such as Tylenol ES. 3. Muscle spasm is not appropriately treated with narcotics. Muscle relaxers such as Soma, Flexeril or Skelaxin can be used along with Tylenol ES. 4. Remember that we all live with some "aches and pains". This is not unusual or uncommon after an injury or as we get older. a. Back pain is expected and may include muscle spasms for 4 to 6 weeks after surgery. The pain should gradually improve. If the pain worsens for no apparent reason, please contact the office. b. Intermittent leg pain may also be experienced and should not be concerned about unless it worsens for no apparent reason. If so, please contact the office. 5. We will provide appropriate medication within the normal guidelines of their prescribed use. We will also be very cautious and aware of potential abuse and extended duration of patients' medication needs. a. Pain medications are for your comfort and to assist with sleep and rest so that the tissue can heal. They are not provided in order to return to normal activity and should not be used through the day. To do so or worsening pain at night can result from ongoing tissue damage and development of tolerance to the prescribed medicine. 6. Please allow 2-3 days to process refills. Prescriptions will not be mailed but must be picked up at the office. FOLLOW UP VISIT: Keep your scheduled follow-up appointment. Any questions, please call the office at . Pending Studies at Discharge: No Stand-Alone Forms: My [facility] [employer], Smoking Cessation Medications and DC Order Prescriptions: New tramadol 50 mg tablet 50 mg PO Q6H PRN (Reason: pain, moderate) Qty: 30 0RF oxycodone 5 mg tablet 5 mg PO Q6H PRN (Reason: pain) Qty: 30 0RF Continued azelastine 137 mcg (0.1 %) aerosol,spray 2 spray intranasal DAILY Rx Instructions: administer into each nostril losartan 50 mg Tablet 50 mg PO QAM aspirin [Aspir-81] 81 mg Tablet,Delayed Release (Dr/Ec) 81 mg PO QAM pantoprazole 40 mg Tablet,Delayed Release (Dr/Ec) 40 mg PO BID levocetirizine 5 mg Tablet 5 mg PO QAM levothyroxine 125 mcg Capsule 125 mcg PO QAM metoprolol succinate 25 mg Tablet Extended Release 24 Hr 25 mg PO BID flecainide 50 mg Tablet 50 mg PO Q12H amitriptyline 10 mg Tablet 10 mg PO HS tramadol 50 mg Tablet 50 mg PO TID PRN (Reason: prn) ondansetron 8 mg Tablet,Disintegrating 8 mg PO Q8H PRN (Reason: Nausea) turmeric root extract 500 mg Tablet 500 mg PO BID Eliquis 5 mg Tablet 5 mg PO BID Ligaplex 2 1 cap PO BID docusate sodium 1 cap PO QAM PRN (Reason: prn) Discharge Orders: Discharge Order (Routine); Ordered 02/08/24 Ordered By: Juan M Padron Admission Data Admit Date/Time: 02/05/24 14:46 Attending Provider: Juan M Padron Admit Provider: Juan M Padron Primary Care Provider: Jackelyn Morales Other Providers: Valorie Lee; Augie Moe
== END 2024-02-08 14:22 | disposition home or self-care (01) | DRG 454 ==
LOC: ASU 10:40 → 3E 14:46